=== PATIENT | male | born 1980 | race Caucasian/White ===

== ENCOUNTER 2016-11-30 06:53 | Inpatient (IN) | payer SELFPAY ==
[2016-11-30] VITALS (32 sets, daily range): BP systolic 82–132; BP diastolic 48–82
[~2016-11-30] VITALS: Ht 188 cm; Wt 91.3 kg
[2016-11-30] MEDS ORDERED: DILTIAZEM HCL 25 MG/5 ML VIAL IV ONE (07:32)
[2016-11-30] MEDS ORDERED: DEXTROSE (50%) 50ML SYRG IV PRN ×3 (07:45→20:45)
[2016-11-30] MEDS ORDERED: LEVOFLOXACIN 750MG 150 ML IV ONE (07:45)
[2016-11-30] MEDS ORDERED: SODIUM CHLORIDE 0.9% 1,000 ML IV ONE ×3 (07:45→20:45)
[2016-11-30] MEDS: SODIUM CHLORIDE 0.9% 1,000 ML IV SCH ×3 (07:56→09:39)
[2016-11-30 07:59] LABS: Urine Bilirubin Negative (Negative); Urine Blood 2+ /uL (Negative); Urine Color Light Yellow (Yellow); Urine Glucose 4+ mg/dL (Normal); Urine Ketone 3+ (Negative); Urine Nitrite Negative (Negative); Urine Urobilinogen Normal (Negative); Urine pH 5.5 (5.0-8.0)
[2016-11-30] MEDS ORDERED: InsuLIN R (HUMAN) 100 UNITS in SODIUM CHL 0.9% 99 ML IV SCH ×2 (08:00→14:40)
[2016-11-30 08:03] LABS: DEFINITIVE VIEW TRANSMISSION; Hematocrit 54.3 % (41.0-53.0); Hemoglobin 17.8 g/dL (13.5-17.5); Mean Corpuscular Hemoglobin 30.3 pg (28.0-32.0); Mean Corpuscular Hgb Conc. 32.7 g/dL (32.0-36.0); Mean Corpuscular Volume 92.8 fL (80.0-100.0); Mean Platelet Volume 8.6 fL (7.4-10.4); Platelet Count (auto) 290 10^3/uL (140-450); Red Cell Distribution Width 13.1 % (11.6-16.0); SUSPECT VIEW TRANSMISSION; White Blood Cell 21.7 10^3/uL (4.4-10.8)
[2016-11-30] MEDS ORDERED: SODIUM BICARBONATE 8.4% INJ 50ML SYRINGE ONE ×2 (08:05→20:51)
[2016-11-30 08:09] LABS: Metamyelocytes % 0; Myelocytes % 0; Promyelocytes % 0; Reactive Lymphocytes 0
[2016-11-30] MEDS ORDERED: SODIUM BICARBONATE 8.4 % INJ 50ML VIAL IV ONE (08:15)
[2016-11-30 08:19] LABS: INR 1.25 (0.9-1.15); Prothrombin Time 12.9 sec (9.37-12.3)
[2016-11-30 08:20] LABS: Lactic Acid 2.3 mmol/L (0.4-2.0)
[2016-11-30 08:24] LABS: Albumin 2.8 g/dL (3.4-5.0); Alkaline Phosphatase 277 U/L (45-117); Anion Gap 32 (5-15); Aspartate Aminotransferase 92 U/L (15-37); BUN/Creatinine Ratio 21.1; Bilirubin, Total 0.4 mg/dL (0.2-1.0); Blood Urea Nitrogen 45 mg/dL (7-18); Calcium 8.4 mg/dL (8.5-10.1); Chloride 85 mmol/L (98-107); GFR African American 45 mL/min; GFR Non-African American 37 mL/min; Potassium 4.7 mmol/L (3.5-5.1); REFLEX LACTIC ACID YES OR NO YES; Sodium 120 mmol/L (136-145); Total Protein 7.2 g/dL (6.4-8.2)
[2016-11-30 08:29] LABS: Urine Granular Cast Few /lpf (0)
[2016-11-30 08:30] LABS: Urine RBC 5 /hpf (0 - 3); Urine Squamous Epithelial Cell Few /hpf (<5)
[2016-11-30 08:33] LABS: Carbon Dioxide 3 mmol/L (21-32)
[2016-11-30 08:34] LABS: Glucose 875 mg/dL (74-106)
[2016-11-30 09:09] LABS: Platelet Estimate Adequate
[2016-11-30] MEDS ORDERED: GLI2T (09:56)
[2016-11-30] MEDS ORDERED: METF-316 (09:56)
[2016-11-30] MEDS ORDERED: INSR100KIT SC (09:56)
[2016-11-30] MEDS ORDERED: GLIP-115 (09:56)
[2016-11-30] MEDS ORDERED: ETOMIDATE (2MG/ML) 20ML VIAL IV ONE ×2 (11:42→11:45)
[2016-11-30] MEDS ORDERED: SUCCINYLCHOLINE CHLORIDE 20 MG/ML 10ML VIAL IV ONE ×2 (11:42→11:45)
[2016-11-30] MEDS ORDERED: MIDAZOLAM DRIP 100 mg/100mL NS 100 ML IV ONE (11:48)
[2016-11-30] MEDS ORDERED: ENOXAPARIN SOD 100 MG/1 ML SYRINGE SC ONE (12:00)
[2016-11-30] MEDS ORDERED: MIDAZOLAM DRIP 100 mg/100mL NS 100 ML IV SCH (12:00)
[2016-11-30] MEDS ORDERED: PANTOPRAZOLE SODIUM 40 MG/10 ML VIAL IV ONE (12:45)
[2016-11-30 14:21] LABS: BUN/Creatinine Ratio 25.7; Calcium 7.6 mg/dL (8.5-10.1); Potassium 4.1 mmol/L (3.5-5.1)
[2016-11-30] MEDS ORDERED: NOREPINEPHRINE BITARTRATE 250 ML IV SCH (14:30)
[2016-11-30] MEDS ORDERED: NITROGLYCERIN 0.4 MG SL TAB SL PRN (14:45)
[2016-11-30] MEDS ORDERED: PIPERACILLIN-TAZOB 3.375GM 100 ML IV ONE (14:45)
[2016-11-30] MEDS ORDERED: MORPHINE SULF INJ 2 MG/ML SYRINGE 1ML IV PRN (14:45)
[2016-11-30] MEDS ORDERED: OSELTAMIVIR 75 MG CAP PO ONE (14:45)
[2016-11-30] MEDS: ACCU-CHEK COMFORT CURVE STRIP VI SCH ×9 (15:15→23:00)
[2016-11-30] MEDS ORDERED: SODIUM BICARBONATE 50ML VIAL 50 ML in SOD CHL 0.45% 1,000 ML IV SCH (15:15)
[2016-11-30] MEDS: NOREPINEPHRINE BITARTRATE 250 ML IV SCH ×2 (15:19→21:10)
[2016-11-30] MEDS: MIDAZOLAM DRIP 100 mg/100mL NS 100 ML IV SCH ×2 (15:42→21:10)
[2016-11-30] MEDS: LINEZOLID 600MG/300ML 300 ML IV SCH (18:00)
[2016-11-30 18:41] LABS: BUN/Creatinine Ratio 22.9; Calcium 7.1 mg/dL (8.5-10.1); Magnesium 2.1 mg/dL (1.6-2.6); Potassium 4.3 mmol/L (3.5-5.1)
[2016-11-30] MEDS: InsuLIN R (HUMAN) 100 UNITS in SODIUM CHL 0.9% 99 ML IV SCH (20:00)
[2016-11-30] MEDS ORDERED: SODIUM CHLORIDE 0.9% 1,000 ML IV SCH (20:40)
[2016-11-30] MEDS: SODIUM BICARBONATE 50ML VIAL 150 ML in SOD CHL 0.45% 1,000 ML IV SCH (20:45)
[2016-11-30] MEDS ORDERED: fentaNYL Drip 2500mCg/250mlNS 250 ML IV ONE (20:49)
[2016-11-30] MEDS ORDERED: PROPOFOL 200 ML IV ONE (21:48)
[2016-11-30] MEDS: PIPERACILLIN-TAZOB 3.375GM 100 ML IV SCH (22:00)
[2016-11-30] MEDS: OSELTAMIVIR 75 MG CAP PO SCH (22:00)
[2016-11-30] MEDS: fentaNYL Drip 2500mCg/250mlNS 250 ML IV SCH (22:10)
[2016-12-01] VITALS (104 sets, daily range): BP systolic 79–118; BP diastolic 36–75
[2016-12-01] MEDS ORDERED: SODIUM BICARBONATE 8.4 % INJ 50ML VIAL IV ONE
[2016-12-01] MEDS ORDERED: PROPOFOL 100 ML IV SCH (00:42)
[2016-12-01] MEDS: MIDAZOLAM DRIP 100 mg/100mL NS 100 ML IV SCH ×3 (00:42→21:13)
[2016-12-01] MEDS: ACCU-CHEK COMFORT CURVE STRIP VI SCH ×24 (01:08→23:00)
[2016-12-01] MEDS: SODIUM BICARBONATE 50ML VIAL 150 ML in SOD CHL 0.45% 1,000 ML IV SCH ×2 (03:17→11:53)
[2016-12-01] MEDS: InsuLIN R (HUMAN) 100 UNITS in SODIUM CHL 0.9% 99 ML IV SCH ×2 (03:18→21:14)
[2016-12-01 03:47] LABS: Hematocrit 44.4 % (41.0-53.0); Hemoglobin 15.1 g/dL (13.5-17.5); Mean Corpuscular Hemoglobin 30.1 pg (28.0-32.0); Mean Corpuscular Hgb Conc. 34.1 g/dL (32.0-36.0); Mean Corpuscular Volume 88.5 fL (80.0-100.0); Mean Platelet Volume 7.4 fL (7.4-10.4); Platelet Count (auto) 206 10^3/uL (140-450); SUSPECT VIEW TRANSMISSION; White Blood Cell 10.3 10^3/uL (4.4-10.8)
[2016-12-01] MEDS: PROPOFOL 100 ML IV SCH (04:00)
[2016-12-01 04:03] LABS: Promyelocytes % 0; Reactive Lymphocytes 0
[2016-12-01 04:10] LABS: Potassium 3.1 mmol/L (3.5-5.1)
[2016-12-01 04:18] LABS: Albumin 1.6 g/dL (3.4-5.0); Calcium 6.7 mg/dL (8.5-10.1)
[2016-12-01 04:21] LABS: Bilirubin, Total 0.2 mg/dL (0.2-1.0); Total Protein 5.1 g/dL (6.4-8.2)
[2016-12-01] MEDS: LINEZOLID 600MG/300ML 300 ML IV SCH ×2 (04:23→17:30)
[2016-12-01 04:54] LABS: Metamyelocytes % 10; Myelocytes % 5; Platelet Estimate Adequate
[2016-12-01 04:55] LABS: RBC Morphology Normal
[2016-12-01] MEDS: PIPERACILLIN-TAZOB 3.375GM 100 ML IV SCH ×3 (06:00→22:00)
[2016-12-01] MEDS ORDERED: CALCIUM GLUC 4.65 MEQ/10ML 4.65 MEQ in SODIUM CHL 0.9% 50 ML IV ONE (06:00)
[2016-12-01] MEDS: POTASSIUM CHL 20MEQ/100ML 100 ML IV SCH ×6 (06:00→20:00)
[2016-12-01 06:11] LABS: INR 1.11 (0.9-1.15); Partial Thromboplastin Time 40.7 sec (22.64-33.71); Prothrombin Time 11.4 sec (9.37-12.3)
[2016-12-01] MEDS ORDERED: ACETAMINOPHEN 325 MG TAB PO PRN (07:15)
[2016-12-01] MEDS ORDERED: ACETAMINOPHEN 650 mg PER 20 mL UD ONE (07:48)
[2016-12-01] MEDS ORDERED: ACETAMINOPHEN 650 mg PER 20 mL UD GT PRN (09:30)
[2016-12-01] MEDS: OSELTAMIVIR 75 MG CAP PO SCH (10:15)
[2016-12-01] MEDS: PANTOPRAZOLE SODIUM 40 MG/10 ML VIAL IV SCH (10:15)
[2016-12-01] MEDS ORDERED: SODIUM CHLORIDE 0.9% 2,000 ML IV ONE (14:00)
[2016-12-01] MEDS ORDERED: POTASSIUM CHL 20MEQ/100ML 200 ML IV ONE (14:03)
[2016-12-01] MEDS: SODIUM BICARBONATE 50ML VIAL 100 ML in SOD CHL 0.45% 1,000 ML IV SCH ×2 (15:00→22:00)
[2016-12-01 20:02] LABS: Urine Bilirubin Negative (Negative); Urine Blood 2+ /uL (Negative); Urine Color Yellow (Yellow); Urine Glucose 4+ mg/dL (Normal); Urine Hyaline Cast FEW /lpf (0 - 2); Urine Ketone 1+ (Negative); Urine Mucus FEW (None Seen); Urine Nitrite Negative (Negative); Urine RBC 16 /hpf (0 - 3); Urine Squamous Epithelial Cell MOD /hpf (<5); Urine Urobilinogen Normal (Negative)
[2016-12-01] MEDS: OSELTAMIVIR 30 MG CAP PO SCH (22:00)
[2016-12-02] VITALS (99 sets, daily range): BP systolic 81–157; BP diastolic 43–90
[2016-12-02] MEDS: PROPOFOL 100 ML IV SCH (00:45)
[2016-12-02] MEDS: ACCU-CHEK COMFORT CURVE STRIP VI SCH ×9 (01:00→20:00)
[2016-12-02] MEDS: LINEZOLID 600MG/300ML 300 ML IV SCH ×2 (03:32→17:02)
[2016-12-02] MEDS: MIDAZOLAM DRIP 100 mg/100mL NS 100 ML IV SCH (03:33)
[2016-12-02 04:00] LABS: Hemoglobin 12.5 g/dL (13.5-17.5); Mean Corpuscular Hemoglobin 29.9 pg (28.0-32.0); Mean Corpuscular Hgb Conc. 33.8 g/dL (32.0-36.0); Mean Corpuscular Volume 88.2 fL (80.0-100.0); Mean Platelet Volume 7.3 fL (7.4-10.4); Platelet Count (auto) 173 10^3/uL (140-450); Red Cell Distribution Width 13.4 % (11.6-16.0); SUSPECT VIEW TRANSMISSION; White Blood Cell 5.1 10^3/uL (4.4-10.8)
[2016-12-02 04:10] LABS: Myelocytes % 0; Promyelocytes % 0; Reactive Lymphocytes 0
[2016-12-02] MEDS: fentaNYL Drip 2500mCg/250mlNS 250 ML IV SCH (04:20)
[2016-12-02 04:25] LABS: Albumin 1.3 g/dL (3.4-5.0); Bilirubin, Total 0.2 mg/dL (0.2-1.0); Calcium 6.8 mg/dL (8.5-10.1); Potassium 3.5 mmol/L (3.5-5.1); Total Protein 4.6 g/dL (6.4-8.2)
[2016-12-02 04:34] LABS: Metamyelocytes % 3; Platelet Estimate Adequate
[2016-12-02 04:35] LABS: Burr Cells FEW
[2016-12-02] MEDS: SODIUM BICARBONATE 50ML VIAL 100 ML in SOD CHL 0.45% 1,000 ML IV SCH ×2 (09:24→13:15)
[2016-12-02] MEDS: PANTOPRAZOLE SODIUM 40 MG/10 ML VIAL IV SCH (10:24)
[2016-12-02] MEDS: OSELTAMIVIR 30 MG CAP PO SCH (10:24)
[2016-12-02] MEDS ORDERED: DEXTROSE (50%) 50ML SYRG IV PRN (11:45)
[2016-12-02] MEDS ORDERED: Diabetisource AC 1 Liter GT SCH (11:45)
[2016-12-02] MEDS: PIPERACILLIN-TAZOB 2.25GM 50 ML IV SCH ×2 (11:46→18:23)
[2016-12-02] MEDS: InsuLIN REG 1unit/0.01ml Soln (100units/ml) SC SCH ×3 (12:00→20:00)
[2016-12-02] MEDS ORDERED: INSULIN DETEMIR(LEVEMIR) 1unit/0.01ml Soln (100units/ml) SC ONE (12:15)
[2016-12-02] MEDS: BACLOFEN 10 MG TAB PO ONE ×2 (12:24→16:20)
[2016-12-02] MEDS: ENOXAPARIN SOD 30 MG/0.3 ML SYRINGE SC SCH (12:24)
[2016-12-02] MEDS ORDERED: NOREPINEPHRINE BITARTRATE 32 MG in D5W 5% 218 ML IV SCH (16:00)
[2016-12-02] MEDS ORDERED: DOPamine 1600MCG/ML 250 ML IV SCH (21:00)
[2016-12-02] MEDS ORDERED: DOPamine 1600MCG/ML 250 ML IV ONE (21:07)
[2016-12-02] MEDS: INSULIN DETEMIR(LEVEMIR) 1unit/0.01ml Soln (100units/ml) SC SCH (22:05)
[2016-12-03] VITALS (100 sets, daily range): BP systolic 82–176; BP diastolic 38–81
[2016-12-03] MEDS: PROPOFOL 100 ML IV SCH (00:45)
[2016-12-03 03:35] LABS: Hematocrit 35.3 % (41.0-53.0); Mean Corpuscular Hemoglobin 30.2 pg (28.0-32.0); Mean Corpuscular Volume 88.7 fL (80.0-100.0); Mean Platelet Volume 7.4 fL (7.4-10.4); Platelet Count (auto) 174 10^3/uL (140-450); Red Cell Distribution Width 13.7 % (11.6-16.0); SUSPECT VIEW TRANSMISSION; White Blood Cell 8.9 10^3/uL (4.4-10.8)
[2016-12-03 04:00] LABS: BUN/Creatinine Ratio 10.5; Calcium 6.8 mg/dL (8.5-10.1)
[2016-12-03] MEDS: ACCU-CHEK COMFORT CURVE STRIP VI SCH ×7 (04:00→23:29)
[2016-12-03] MEDS: InsuLIN REG 1unit/0.01ml Soln (100units/ml) SC SCH ×7 (04:00→23:47)
[2016-12-03] MEDS: LINEZOLID 600MG/300ML 300 ML IV SCH ×2 (04:00→16:00)
[2016-12-03 04:23] LABS: Myelocytes % 0; Promyelocytes % 0; Reactive Lymphocytes 0
[2016-12-03 04:50] LABS: Burr Cells FEW; Metamyelocytes % 1; Platelet Estimate Adequate
[2016-12-03] MEDS: PIPERACILLIN-TAZOB 2.25GM 50 ML IV SCH ×5 (06:41→23:29)
[2016-12-03] MEDS ORDERED: SODIUM CHLORIDE 0.9% 1,000 ML IV SCH (07:15)
[2016-12-03] MEDS: INSULIN DETEMIR(LEVEMIR) 1unit/0.01ml Soln (100units/ml) SC SCH (09:08)
[2016-12-03] MEDS ORDERED: SODIUM CHLORIDE 0.9% 1,000 ML IV ONE (09:15)
[2016-12-03] MEDS ORDERED: D5W 5% 1,000 ML IV SCH (09:15)
[2016-12-03] MEDS: fentaNYL Drip 2500mCg/250mlNS 250 ML IV SCH (09:23)
[2016-12-03] MEDS: ENOXAPARIN SOD 30 MG/0.3 ML SYRINGE SC SCH (09:23)
[2016-12-03] MEDS: PANTOPRAZOLE SODIUM 40 MG/10 ML VIAL IV SCH (09:23)
[2016-12-03] MEDS: SODIUM BICARBONATE 50ML VIAL 100 ML in SOD CHL 0.45% 1,000 ML IV SCH ×2 (09:28→13:44)
[2016-12-03] MEDS ORDERED: DEXTROSE 10% 1,000 ML IV ONE (09:30)
[2016-12-03] MEDS ORDERED: BUMETANIDE (0.25 MG/ML) INJ 10ML IV ONE (09:30)
[2016-12-03] MEDS ORDERED: POTASSIUM CHLORIDE 40 MEQ, LIDOCAINE 1% (LOCAL ANESTH.) 4 ML in SODIUM CHL 0.9% 250 ML IV ONE (09:30)
[2016-12-03] MEDS ORDERED: OSELTAMIVIR 30 MG CAP PO SCH (10:00)
[2016-12-03] MEDS ORDERED: Diabetisource AC 1 Liter GT SCH (17:00)
[2016-12-03 18:58] LABS: BUN/Creatinine Ratio 9.7; Calcium 6.7 mg/dL (8.5-10.1); Potassium 3.1 mmol/L (3.5-5.1)
[2016-12-03] MEDS ORDERED: POTASSIUM CHL 20MEQ/100ML 100 ML IV ONE ×2 (23:04→23:15)
[2016-12-04] VITALS (104 sets, daily range): BP systolic 79–138; BP diastolic 35–87
[2016-12-04] MEDS: PROPOFOL 100 ML IV SCH (00:45)
[2016-12-04] MEDS: LINEZOLID 600MG/300ML 300 ML IV SCH ×2 (03:30→16:59)
[2016-12-04] MEDS: ACCU-CHEK COMFORT CURVE STRIP VI SCH ×6 (03:30→23:28)
[2016-12-04] MEDS: InsuLIN REG 1unit/0.01ml Soln (100units/ml) SC SCH ×6 (03:34→23:29)
[2016-12-04 04:21] LABS: Basophils # (auto) 0 uL; Basophils % (auto) 0.1 % (0.0-2.0); Eosinophils # (auto) 0.1 uL; Eosinophils % (auto) 0.8 % (0.0-7.0); Hematocrit 31.6 % (41.0-53.0); Hemoglobin 11.1 g/dL (13.5-17.5); Lymphocytes # (auto) 0.5 uL; Lymphocytes % (auto) 5.4 % (10.0-50.0); Mean Corpuscular Hemoglobin 30.4 pg (28.0-32.0); Mean Corpuscular Volume 86.8 fL (80.0-100.0); Mean Platelet Volume 7.3 fL (7.4-10.4); Monocytes # (auto) 0.4 uL; Monocytes % (auto) 3.9 % (0.0-12.0); Neutrophils # (auto) 8.9 uL; Neutrophils % (auto) 89.8 % (37.0-80.0); Platelet Count (auto) 177 10^3/uL (140-450); Red Cell Distribution Width 13.9 % (11.6-16.0); White Blood Cell 9.9 10^3/uL (4.4-10.8)
[2016-12-04 04:36] LABS: BUN/Creatinine Ratio 10.7; Calcium 6.7 mg/dL (8.5-10.1); Potassium 3.4 mmol/L (3.5-5.1)
[2016-12-04] MEDS: PIPERACILLIN-TAZOB 2.25GM 50 ML IV SCH ×4 (05:35→23:28)
[2016-12-04] MEDS: fentaNYL Drip 2500mCg/250mlNS 250 ML IV SCH ×2 (07:39→19:14)
[2016-12-04] MEDS ORDERED: SODIUM CHL 0.9% 1000 ML BAG XX ONE (11:15)
[2016-12-04] MEDS: ENOXAPARIN SOD 30 MG/0.3 ML SYRINGE SC SCH (12:41)
[2016-12-04] MEDS: PANTOPRAZOLE SODIUM 40 MG/10 ML VIAL IV SCH (12:41)
[2016-12-04] MEDS ORDERED: NOREPINEPHRINE BITARTRATE 250 ML IV ONE (13:12)
[2016-12-04] MEDS: MIDAZOLAM DRIP 100 mg/100mL NS 100 ML IV SCH ×2 (19:13)
[2016-12-05] VITALS (104 sets, daily range): BP systolic 92–137; BP diastolic 45–80
[2016-12-05] MEDS: PROPOFOL 100 ML IV SCH (00:45)
[2016-12-05] MEDS: LINEZOLID 600MG/300ML 300 ML IV SCH ×2 (03:27→16:00)
[2016-12-05] MEDS: MIDAZOLAM DRIP 100 mg/100mL NS 100 ML IV SCH (03:27)
[2016-12-05] MEDS: ACCU-CHEK COMFORT CURVE STRIP VI SCH ×5 (03:28→20:50)
[2016-12-05] MEDS: InsuLIN REG 1unit/0.01ml Soln (100units/ml) SC SCH ×5 (03:34→21:04)
[2016-12-05 04:12] LABS: Basophils # (auto) 0 uL; Basophils % (auto) 0.1 % (0.0-2.0); Eosinophils # (auto) 0.1 uL; Hematocrit 28.6 % (41.0-53.0); Hemoglobin 9.9 g/dL (13.5-17.5); Lymphocytes # (auto) 0.6 uL; Lymphocytes % (auto) 8.6 % (10.0-50.0); Mean Corpuscular Hemoglobin 30.1 pg (28.0-32.0); Mean Corpuscular Hgb Conc. 34.5 g/dL (32.0-36.0); Mean Corpuscular Volume 87.3 fL (80.0-100.0); Mean Platelet Volume 7.2 fL (7.4-10.4); Monocytes # (auto) 0.5 uL; Monocytes % (auto) 7.9 % (0.0-12.0); Neutrophils # (auto) 5.2 uL; Neutrophils % (auto) 81.4 % (37.0-80.0); Platelet Count (auto) 163 10^3/uL (140-450); Red Cell Distribution Width 14.2 % (11.6-16.0); White Blood Cell 6.4 10^3/uL (4.4-10.8)
[2016-12-05 04:27] LABS: BUN/Creatinine Ratio 9.8; Bilirubin, Total 0.3 mg/dL (0.2-1.0); Calcium 7.1 mg/dL (8.5-10.1); Magnesium 2.2 mg/dL (1.6-2.6); Prothrombin Time 11.9 sec (9.37-12.3); Total Protein 4.9 g/dL (6.4-8.2)
[2016-12-05 04:40] LABS: INR 1.16 (0.9-1.15)
[2016-12-05 04:46] LABS: Potassium 2.9 mmol/L (3.5-5.1)
[2016-12-05] MEDS ORDERED: POTASSIUM CHL 20MEQ/100ML 200 ML IV ONE (06:16)
[2016-12-05] MEDS: PIPERACILLIN-TAZOB 2.25GM 50 ML IV SCH ×3 (06:25→18:32)
[2016-12-05] MEDS: POTASSIUM CHL 20MEQ/100ML 100 ML IV SCH ×2 (06:30→09:11)
[2016-12-05] MEDS: fentaNYL Drip 2500mCg/250mlNS 250 ML IV SCH (08:23)
[2016-12-05] MEDS: ENOXAPARIN SOD 30 MG/0.3 ML SYRINGE SC SCH (10:31)
[2016-12-05] MEDS: PANTOPRAZOLE SODIUM 40 MG/10 ML VIAL IV SCH (10:31)
[2016-12-06] VITALS (97 sets, daily range): BP systolic 94–175; BP diastolic 44–119
[2016-12-06] MEDS: PIPERACILLIN-TAZOB 2.25GM 50 ML IV SCH ×3 (00:45→12:00)
[2016-12-06] MEDS: InsuLIN REG 1unit/0.01ml Soln (100units/ml) SC SCH ×6 (03:14→21:06)
[2016-12-06] MEDS: ACCU-CHEK COMFORT CURVE STRIP VI SCH ×6 (03:40→20:45)
[2016-12-06] MEDS: LINEZOLID 600MG/300ML 300 ML IV SCH ×2 (03:40→16:00)
[2016-12-06 03:54] LABS: Basophils # (auto) 0 uL; Eosinophils # (auto) 0.1 uL; Hemoglobin 10.3 g/dL (13.5-17.5); Lymphocytes # (auto) 0.5 uL; Lymphocytes % (auto) 6.3 % (10.0-50.0); Mean Corpuscular Hemoglobin 30.3 pg (28.0-32.0); Mean Corpuscular Hgb Conc. 34.2 g/dL (32.0-36.0); Mean Corpuscular Volume 88.5 fL (80.0-100.0); Monocytes # (auto) 0.9 uL; Monocytes % (auto) 11.8 % (0.0-12.0); Neutrophils # (auto) 6.4 uL; Neutrophils % (auto) 80.9 % (37.0-80.0); Platelet Count (auto) 214 10^3/uL (140-450); Red Cell Distribution Width 14.1 % (11.6-16.0); White Blood Cell 7.9 10^3/uL (4.4-10.8)
[2016-12-06 04:11] LABS: Albumin 1.2 g/dL (3.4-5.0); Calcium 7.4 mg/dL (8.5-10.1); Magnesium 2.4 mg/dL (1.6-2.6); Potassium 3.1 mmol/L (3.5-5.1)
[2016-12-06 04:12] LABS: INR 1.11 (0.9-1.15); Prothrombin Time 11.4 sec (9.37-12.3)
[2016-12-06 04:23] LABS: BUN/Creatinine Ratio 9.6; Bilirubin, Total 0.4 mg/dL (0.2-1.0); Total Protein 5.3 g/dL (6.4-8.2)
[2016-12-06] MEDS ORDERED: PROPOFOL 100 ML IV ONE (07:52)
[2016-12-06] MEDS ORDERED: SODIUM BICARBONATE 8.4% INJ 50ML SYRINGE ONE (07:52)
[2016-12-06] MEDS ORDERED: SODIUM BICARBONATE 8.4 % INJ 50ML VIAL IV ONE (08:00)
[2016-12-06] MEDS: PROPOFOL 100 ML IV SCH ×2 (08:13→10:17)
[2016-12-06] MEDS ORDERED: EPOETIN ALFA 3,000 UNIT/1 ML VIAL IV ONE ×2 (10:15→11:15)
[2016-12-06] MEDS ORDERED: SODIUM CHL 0.9% 1000 ML BAG XX ONE ×2 (10:15→10:30)
[2016-12-06] MEDS: PANTOPRAZOLE SODIUM 40 MG/10 ML VIAL IV SCH (10:16)
[2016-12-06] MEDS: ENOXAPARIN SOD 30 MG/0.3 ML SYRINGE SC SCH (10:16)
[2016-12-06] MEDS ORDERED: EPOETIN ALFA 2,000 UNIT/1 ML VIAL IV ONE (11:15)
[2016-12-06] MEDS: METOCLOPRAMIDE HCL 5MG/ml INJ 2ml VIAL IV SCH ×2 (13:54→22:00)
[2016-12-06] MEDS: fentaNYL Drip 2500mCg/250mlNS 250 ML IV SCH (18:30)
[2016-12-06] MEDS: INSULIN DETEMIR(LEVEMIR) 1unit/0.01ml Soln (100units/ml) SC SCH (22:00)
[2016-12-06 22:08] LABS: Subtype Novel H1N1 by PCR Negative (Negative)
[2016-12-07] VITALS (96 sets, daily range): BP systolic 105–162; BP diastolic 46–106
[2016-12-07] MEDS: fentaNYL Drip 2500mCg/250mlNS 250 ML IV SCH (00:42)
[2016-12-07] MEDS: ACCU-CHEK COMFORT CURVE STRIP VI SCH ×6 (03:45→21:10)
[2016-12-07] MEDS: LINEZOLID 600MG/300ML 300 ML IV SCH ×2 (03:47→16:26)
[2016-12-07] MEDS: InsuLIN REG 1unit/0.01ml Soln (100units/ml) SC SCH ×6 (03:47→22:14)
[2016-12-07 04:00] LABS: Basophils # (auto) 0 uL; Basophils % (auto) 0.1 % (0.0-2.0); Eosinophils # (auto) 0.1 uL; Eosinophils % (auto) 1.5 % (0.0-7.0); Hematocrit 29.9 % (41.0-53.0); Hemoglobin 10.3 g/dL (13.5-17.5); Lymphocytes # (auto) 0.6 uL; Mean Corpuscular Hemoglobin 30.1 pg (28.0-32.0); Mean Corpuscular Hgb Conc. 34.5 g/dL (32.0-36.0); Mean Corpuscular Volume 87.3 fL (80.0-100.0); Mean Platelet Volume 6.7 fL (7.4-10.4); Monocytes # (auto) 1.2 uL; Monocytes % (auto) 14.3 % (0.0-12.0); Neutrophils # (auto) 6.3 uL; Neutrophils % (auto) 77.1 % (37.0-80.0); Platelet Count (auto) 257 10^3/uL (140-450); White Blood Cell 8.1 10^3/uL (4.4-10.8)
[2016-12-07 04:44] LABS: BUN/Creatinine Ratio 9.1; Calcium 7.4 mg/dL (8.5-10.1)
[2016-12-07 04:47] LABS: Potassium 2.7 mmol/L (3.5-5.1)
[2016-12-07] MEDS: cefTRIAXone 1GM/50ML D5W 50 ML IV SCH (08:55)
[2016-12-07] MEDS: POTASSIUM CHL 20MEQ/100ML 100 ML IV SCH ×4 (08:55→14:45)
[2016-12-07] MEDS: FLUCONAZOLE 200MG/100ML 100 ML IV SCH (11:03)
[2016-12-07] MEDS: PANTOPRAZOLE SODIUM 40 MG/10 ML VIAL IV SCH (11:07)
[2016-12-07] MEDS: ENOXAPARIN SOD 30 MG/0.3 ML SYRINGE SC SCH (11:07)
[2016-12-07] MEDS: INSULIN DETEMIR(LEVEMIR) 1unit/0.01ml Soln (100units/ml) SC SCH ×2 (11:13→21:08)
[2016-12-07] MEDS: METOCLOPRAMIDE HCL 5MG/ml INJ 2ml VIAL IV SCH ×2 (16:33→22:22)
[2016-12-07] MEDS: PROPOFOL 100 ML IV SCH (18:24)
[2016-12-08] VITALS (96 sets, daily range): BP systolic 109–141; BP diastolic 48–89
[2016-12-08] MEDS: InsuLIN REG 1unit/0.01ml Soln (100units/ml) SC SCH ×6 (00:40→20:00)
[2016-12-08] MEDS: ACCU-CHEK COMFORT CURVE STRIP VI SCH ×6 (00:40→20:00)
[2016-12-08] MEDS: fentaNYL Drip 2500mCg/250mlNS 250 ML IV SCH (00:42)
[2016-12-08] MEDS: LINEZOLID 600MG/300ML 300 ML IV SCH (04:28)
[2016-12-08 04:39] LABS: Basophils # (auto) 0 uL; Basophils % (auto) 0.5 % (0.0-2.0); Eosinophils # (auto) 0.1 uL; Eosinophils % (auto) 1.9 % (0.0-7.0); Hematocrit 27.4 % (41.0-53.0); Hemoglobin 9.7 g/dL (13.5-17.5); Lymphocytes # (auto) 0.8 uL; Mean Corpuscular Hemoglobin 30.5 pg (28.0-32.0); Mean Corpuscular Hgb Conc. 35.2 g/dL (32.0-36.0); Mean Corpuscular Volume 86.4 fL (80.0-100.0); Mean Platelet Volume 6.5 fL (7.4-10.4); Monocytes # (auto) 0.9 uL; Monocytes % (auto) 12.4 % (0.0-12.0); Neutrophils # (auto) 5.6 uL; Neutrophils % (auto) 74.2 % (37.0-80.0); Platelet Count (auto) 276 10^3/uL (140-450); Red Cell Distribution Width 13.3 % (11.6-16.0); White Blood Cell 7.5 10^3/uL (4.4-10.8)
[2016-12-08 05:03] LABS: Albumin 1.3 g/dL (3.4-5.0); BUN/Creatinine Ratio 8.8; Bilirubin, Total 0.3 mg/dL (0.2-1.0); Calcium 7.8 mg/dL (8.5-10.1); Total Protein 5.6 g/dL (6.4-8.2)
[2016-12-08 05:17] LABS: Potassium 2.6 mmol/L (3.5-5.1)
[2016-12-08] MEDS ORDERED: SODIUM CHL 0.9% 1000 ML BAG XX ONE ×2 (06:00→09:30)
[2016-12-08] MEDS: METOCLOPRAMIDE HCL 5MG/ml INJ 2ml VIAL IV SCH ×3 (06:00→22:27)
[2016-12-08] MEDS ORDERED: EPOETIN ALFA 10,000 UNIT/1 ML VIAL IV ONE ×2 (06:00→09:30)
[2016-12-08] MEDS ORDERED: POTASSIUM CHL 20MEQ/100ML 100 ML IV ONE ×2 (06:52→09:30)
[2016-12-08] MEDS: POTASSIUM CHL 20MEQ/100ML 100 ML IV SCH ×2 (07:00→09:00)
[2016-12-08] MEDS: cefTRIAXone 1GM/50ML D5W 50 ML IV SCH (09:00)
[2016-12-08] MEDS: INSULIN DETEMIR(LEVEMIR) 1unit/0.01ml Soln (100units/ml) SC SCH ×2 (10:00→22:00)
[2016-12-08] MEDS: FLUCONAZOLE 200MG/100ML 100 ML IV SCH (10:00)
[2016-12-08] MEDS: ENOXAPARIN SOD 30 MG/0.3 ML SYRINGE SC SCH (10:00)
[2016-12-08] MEDS: PANTOPRAZOLE SODIUM 40 MG/10 ML VIAL IV SCH (10:00)
[2016-12-08] MEDS ORDERED: LIDOCAINE 1% HCL (LOCAL ANESTH.) INJ 20ML MDV ONE (11:44)
[2016-12-08] MEDS ORDERED: CATHFLO ACTIVASE (ALTEPLASE) 2 MG VIAL IV ONE (11:45)
[2016-12-08] MEDS ORDERED: MORPHINE SULF INJ 2 MG/ML SYRINGE 1ML IV PRN (11:45)
[2016-12-08] MEDS: PROPOFOL 100 ML IV SCH (20:15)
[2016-12-09] VITALS (82 sets, daily range): BP systolic 96–158; BP diastolic 44–100
[2016-12-09] MEDS: fentaNYL Drip 2500mCg/250mlNS 250 ML IV SCH (00:42)
[2016-12-09] MEDS: InsuLIN REG 1unit/0.01ml Soln (100units/ml) SC SCH ×6 (04:00→20:00)
[2016-12-09] MEDS: ACCU-CHEK COMFORT CURVE STRIP VI SCH ×6 (04:00→20:00)
[2016-12-09 04:12] LABS: BUN/Creatinine Ratio 7.7; Calcium 7.1 mg/dL (8.5-10.1); Potassium 3.2 mmol/L (3.5-5.1)
[2016-12-09] MEDS: PROPOFOL 100 ML IV SCH (04:29)
[2016-12-09] MEDS: METOCLOPRAMIDE HCL 5MG/ml INJ 2ml VIAL IV SCH (06:19)
[2016-12-09] MEDS: cefTRIAXone 1GM/50ML D5W 50 ML IV SCH (08:54)
[2016-12-09] MEDS: INSULIN DETEMIR(LEVEMIR) 1unit/0.01ml Soln (100units/ml) SC SCH ×2 (10:00→22:00)
[2016-12-09] MEDS: ENOXAPARIN SOD 30 MG/0.3 ML SYRINGE SC SCH (10:16)
[2016-12-09] MEDS: PANTOPRAZOLE SODIUM 40 MG/10 ML VIAL IV SCH (10:16)
[2016-12-09] MEDS: FLUCONAZOLE 200MG/100ML 100 ML IV SCH (10:17)
[2016-12-09] MEDS ORDERED: BUMETANIDE (0.25MG/ML) 4 ML VIAL ONE (11:08)
[2016-12-09] MEDS ORDERED: POTASSIUM CHL 10% (20 MEQ/15ML) ORAL SOLN GT ONE (11:30)
[2016-12-09] MEDS ORDERED: BUMETANIDE (0.25MG/ML) 4 ML VIAL IV ONE (11:30)
[2016-12-09] MEDS ORDERED: POTASSIUM CHL 20MEQ/100ML 100 ML IV ONE ×2 (12:30→14:45)
[2016-12-09] MEDS ORDERED: EPOETIN ALFA 10,000 UNIT/1 ML VIAL IV ONE (14:30)
[2016-12-09] MEDS ORDERED: SODIUM CHL 0.9% 1000 ML BAG XX ONE (14:30)
[2016-12-09] MEDS ORDERED: ACETAMINOPHEN 325 MG TAB PO ONE (17:57)
[2016-12-09] MEDS: B-COMPLEX W/ C & FOLIC ACID(NEPHROVITE TAB) PO SCH (18:04)
[2016-12-09] MEDS: ACETAMINOPHEN 325 MG TAB PO PRN (18:14)
[2016-12-10] VITALS (38 sets, daily range): BP systolic 117–140; BP diastolic 60–83
[2016-12-10] MEDS: ACCU-CHEK COMFORT CURVE STRIP VI SCH ×6 (00:10→22:14)
[2016-12-10] MEDS: InsuLIN REG 1unit/0.01ml Soln (100units/ml) SC SCH ×6 (00:10→22:16)
[2016-12-10 06:30] LABS: Basophils # (auto) 0 uL; Basophils % (auto) 0.2 % (0.0-2.0); Eosinophils # (auto) 0 uL; Eosinophils % (auto) 0.3 % (0.0-7.0); Hematocrit 29.2 % (41.0-53.0); Lymphocytes # (auto) 0.7 uL; Lymphocytes % (auto) 5.7 % (10.0-50.0); Mean Corpuscular Hemoglobin 29.9 pg (28.0-32.0); Mean Corpuscular Hgb Conc. 34.1 g/dL (32.0-36.0); Mean Corpuscular Volume 87.7 fL (80.0-100.0); Mean Platelet Volume 6.6 fL (7.4-10.4); Monocytes # (auto) 0.9 uL; Monocytes % (auto) 6.9 % (0.0-12.0); Neutrophils # (auto) 10.8 uL; Neutrophils % (auto) 86.9 % (37.0-80.0); Platelet Count (auto) 398 10^3/uL (140-450); White Blood Cell 12.4 10^3/uL (4.4-10.8)
[2016-12-10 06:55] LABS: Potassium 3.5 mmol/L (3.5-5.1)
[2016-12-10 07:15] LABS: Albumin 1.4 g/dL (3.4-5.0); BUN/Creatinine Ratio 6.6; Bilirubin, Total 0.4 mg/dL (0.2-1.0); Calcium 7.6 mg/dL (8.5-10.1); Total Protein 5.9 g/dL (6.4-8.2)
[2016-12-10] MEDS: cefTRIAXone 1GM/50ML D5W 50 ML IV SCH (08:33)
[2016-12-10] MEDS: B-COMPLEX W/ C & FOLIC ACID(NEPHROVITE TAB) PO SCH (10:17)
[2016-12-10] MEDS: ENOXAPARIN SOD 30 MG/0.3 ML SYRINGE SC SCH (10:18)
[2016-12-10] MEDS: PANTOPRAZOLE SODIUM 40 MG/10 ML VIAL IV SCH (10:18)
[2016-12-10] MEDS: INSULIN DETEMIR(LEVEMIR) 1unit/0.01ml Soln (100units/ml) SC SCH ×2 (10:20→22:16)
[2016-12-10] MEDS: FLUCONAZOLE 200MG/100ML 100 ML IV SCH (10:21)
[2016-12-10] MEDS ORDERED: DEXTROSE (50%) 50ML SYRG IV PRN (11:45)
[2016-12-10 12:07] LABS: Phosphorus 4.2 mg/dL (2.5-4.90)
[2016-12-10] MEDS ORDERED: LIDOCAINE 1% HCL (LOCAL ANESTH.) INJ 20ML MDV ONE (12:43)
[2016-12-11 05:54] VITALS: BP 140/70
[2016-12-11 06:21] LABS: Basophils # (auto) 0 uL; Basophils % (auto) 0.1 % (0.0-2.0); Eosinophils # (auto) 0.1 uL; Eosinophils % (auto) 0.6 % (0.0-7.0); Hematocrit 25.4 % (41.0-53.0); Hemoglobin 8.7 g/dL (13.5-17.5); Lymphocytes # (auto) 0.8 uL; Lymphocytes % (auto) 7.2 % (10.0-50.0); Mean Corpuscular Hemoglobin 29.7 pg (28.0-32.0); Mean Corpuscular Hgb Conc. 34.4 g/dL (32.0-36.0); Mean Corpuscular Volume 86.5 fL (80.0-100.0); Monocytes # (auto) 0.7 uL; Monocytes % (auto) 5.8 % (0.0-12.0); Neutrophils # (auto) 9.7 uL; Neutrophils % (auto) 86.3 % (37.0-80.0); Platelet Count (auto) 405 10^3/uL (140-450); Red Cell Distribution Width 13.4 % (11.6-16.0); White Blood Cell 11.2 10^3/uL (4.4-10.8)
[2016-12-11] MEDS: ACCU-CHEK COMFORT CURVE STRIP VI SCH ×4 (06:56→22:00)
[2016-12-11] MEDS: InsuLIN REG 1unit/0.01ml Soln (100units/ml) SC SCH ×4 (06:56→22:48)
[2016-12-11 09:13] VITALS: BP 140/77
[2016-12-11] MEDS: FLUCONAZOLE 200MG/100ML 100 ML IV SCH (12:19)
[2016-12-11] MEDS: PANTOPRAZOLE SODIUM 40 MG/10 ML VIAL IV SCH (12:19)
[2016-12-11] MEDS: B-COMPLEX W/ C & FOLIC ACID(NEPHROVITE TAB) PO SCH (12:19)
[2016-12-11] MEDS: INSULIN DETEMIR(LEVEMIR) 1unit/0.01ml Soln (100units/ml) SC SCH ×2 (12:20→22:49)
[2016-12-11 13:44] VITALS: BP 132/82
[2016-12-11 16:28] VITALS: BP 145/80
[2016-12-11] MEDS: cefTRIAXone 1GM/50ML D5W 50 ML IV SCH (17:00)
[2016-12-11] MEDS: ENOXAPARIN SOD 30 MG/0.3 ML SYRINGE SC SCH (17:00)
[2016-12-11] MEDS ORDERED: ACETYLCYSTEINE 10 %(100MG/ML) SOL 4ML NEB SCH (18:00)
[2016-12-11 21:10] VITALS: BP 145/80
[2016-12-11 22:00] VITALS: BP 145/81
[2016-12-11] MEDS: ACETYLCYSTEINE 10 %(100MG/ML) SOL 4ML NEB SCH (22:17)
[2016-12-11] MEDS: ALBUTEROL SULF 2.5 MG/0.5ML(0.5%) NEB SOLN NEB PRN (22:18)
[2016-12-12 05:00] VITALS: BP 136/80
[2016-12-12] MEDS: ALBUTEROL SULF 2.5 MG/0.5ML(0.5%) NEB SOLN NEB PRN (06:18)
[2016-12-12] MEDS: ACETYLCYSTEINE 10 %(100MG/ML) SOL 4ML NEB SCH ×2 (06:18→14:10)
[2016-12-12 06:38] LABS: Basophils # (auto) 0 uL; Basophils % (auto) 0.6 % (0.0-2.0); Eosinophils # (auto) 0 uL; Eosinophils % (auto) 0.5 % (0.0-7.0); Hematocrit 26.5 % (41.0-53.0); Lymphocytes # (auto) 0.9 uL; Lymphocytes % (auto) 11.7 % (10.0-50.0); Mean Corpuscular Volume 88.3 fL (80.0-100.0); Mean Platelet Volume 6.2 fL (7.4-10.4); Monocytes # (auto) 0.6 uL; Monocytes % (auto) 7.3 % (0.0-12.0); Neutrophils # (auto) 6.3 uL; Neutrophils % (auto) 79.9 % (37.0-80.0); Platelet Count (auto) 361 10^3/uL (140-450); Red Cell Distribution Width 13.4 % (11.6-16.0); White Blood Cell 7.9 10^3/uL (4.4-10.8)
[2016-12-12] MEDS: ACCU-CHEK COMFORT CURVE STRIP VI SCH ×4 (06:49→22:00)
[2016-12-12] MEDS: InsuLIN REG 1unit/0.01ml Soln (100units/ml) SC SCH ×4 (06:49→22:43)
[2016-12-12 07:16] LABS: BUN/Creatinine Ratio 5.9; Calcium 7.4 mg/dL (8.5-10.1)
[2016-12-12 09:00] VITALS: BP 130/77
[2016-12-12] MEDS: cefTRIAXone 1GM/50ML D5W 50 ML IV SCH (09:26)
[2016-12-12] MEDS: FLUCONAZOLE 200MG/100ML 100 ML IV SCH (10:33)
[2016-12-12] MEDS: B-COMPLEX W/ C & FOLIC ACID(NEPHROVITE TAB) PO SCH (10:33)
[2016-12-12] MEDS: PANTOPRAZOLE SODIUM 40 MG/10 ML VIAL IV SCH (10:33)
[2016-12-12] MEDS: ENOXAPARIN SOD 30 MG/0.3 ML SYRINGE SC SCH (10:33)
[2016-12-12] MEDS: INSULIN DETEMIR(LEVEMIR) 1unit/0.01ml Soln (100units/ml) SC SCH ×2 (10:49→22:47)
[2016-12-12 13:00] VITALS: BP 117/69
[2016-12-12 17:00] VITALS: BP 121/77
[2016-12-12 22:17] VITALS: BP 141/78
[2016-12-13] VITALS (7 sets, daily range): BP systolic 126–146; BP diastolic 76–91
[2016-12-13] MEDS: ACETYLCYSTEINE 10 %(100MG/ML) SOL 4ML NEB SCH ×4 (02:11→21:49)
[2016-12-13] MEDS: ALBUTEROL SULF 2.5 MG/0.5ML(0.5%) NEB SOLN NEB PRN ×2 (02:12→21:49)
[2016-12-13 06:30] LABS: Basophils # (auto) 0.1 uL; Basophils % (auto) 0.7 % (0.0-2.0); Eosinophils # (auto) 0 uL; Eosinophils % (auto) 0.3 % (0.0-7.0); Hematocrit 24.9 % (41.0-53.0); Hemoglobin 8.6 g/dL (13.5-17.5); Lymphocytes # (auto) 0.9 uL; Lymphocytes % (auto) 11.3 % (10.0-50.0); Mean Corpuscular Hemoglobin 29.8 pg (28.0-32.0); Mean Corpuscular Hgb Conc. 34.7 g/dL (32.0-36.0); Mean Corpuscular Volume 86.1 fL (80.0-100.0); Monocytes # (auto) 0.4 uL; Monocytes % (auto) 5.4 % (0.0-12.0); Neutrophils # (auto) 6.5 uL; Neutrophils % (auto) 82.3 % (37.0-80.0); Platelet Count (auto) 351 10^3/uL (140-450); Red Cell Distribution Width 13.6 % (11.6-16.0); White Blood Cell 7.9 10^3/uL (4.4-10.8)
[2016-12-13] MEDS: InsuLIN REG 1unit/0.01ml Soln (100units/ml) SC SCH ×4 (06:54→22:00)
[2016-12-13] MEDS: ACCU-CHEK COMFORT CURVE STRIP VI SCH ×4 (06:54→22:00)
[2016-12-13 07:09] LABS: BUN/Creatinine Ratio 6.2; Calcium 7.5 mg/dL (8.5-10.1)
[2016-12-13] MEDS ORDERED: SODIUM CHL 0.9% 1000 ML BAG XX ONE (08:00)
[2016-12-13] MEDS ORDERED: EPOETIN ALFA 10,000 UNIT/1 ML VIAL IV ONE (08:00)
[2016-12-13] MEDS: ENOXAPARIN SOD 30 MG/0.3 ML SYRINGE SC SCH (10:19)
[2016-12-13] MEDS: B-COMPLEX W/ C & FOLIC ACID(NEPHROVITE TAB) PO SCH (10:19)
[2016-12-13] MEDS: INSULIN DETEMIR(LEVEMIR) 1unit/0.01ml Soln (100units/ml) SC SCH ×2 (10:29→22:48)
[2016-12-13] MEDS ORDERED: PANTOPRAZOLE 40 MG TAB PO ONE (12:15)
[2016-12-13] MEDS ORDERED: INSULIN DETEMIR(LEVEMIR) 1unit/0.01ml Soln (100units/ml) SC ONE (12:15)
[2016-12-13] MEDS: cefTRIAXone 1GM/50ML D5W 50 ML IV SCH (12:35)
[2016-12-13] MEDS: FLUCONAZOLE 200MG/100ML 100 ML IV SCH (14:00)
[2016-12-13 14:10] LABS: Vitamin D 25-Hydroxy 13 ng/mL (.); Vitamin D-2 25-Hydroxy <1.0 ng/mL (.)
[2016-12-13] MEDS: PRO-STAT 64 30ML PO SCH (18:00)
[2016-12-13] MEDS: ACETAMINOPHEN 325 MG TAB PO PRN (20:34)
[2016-12-14 05:00] VITALS: BP 131/75
[2016-12-14 05:50] LABS: Urine Bilirubin Negative (Negative); Urine Color Yellow (Yellow); Urine Glucose Normal (Normal); Urine Ketone Negative (Negative); Urine Mucus FEW (None Seen); Urine Nitrite Negative (Negative); Urine RBC 8 /hpf (0 - 3); Urine Urobilinogen Normal (Negative); Urine pH 6.5 (5.0-8.0)
[2016-12-14 05:51] LABS: Urine Blood 1+ /uL (Negative)
[2016-12-14] MEDS: ACETYLCYSTEINE 10 %(100MG/ML) SOL 4ML NEB SCH (06:00)
[2016-12-14 06:06] LABS: Potassium 3.1 mmol/L (3.5-5.1)
[2016-12-14 06:12] LABS: BUN/Creatinine Ratio 6.2; Calcium 7.3 mg/dL (8.5-10.1)
[2016-12-14] MEDS: ACCU-CHEK COMFORT CURVE STRIP VI SCH ×4 (06:45→22:21)
[2016-12-14] MEDS: InsuLIN REG 1unit/0.01ml Soln (100units/ml) SC SCH ×4 (06:45→22:20)
[2016-12-14] MEDS: cefTRIAXone 1GM/50ML D5W 50 ML IV SCH (08:55)
[2016-12-14 09:00] VITALS: BP 145/83
[2016-12-14] MEDS: B-COMPLEX W/ C & FOLIC ACID(NEPHROVITE TAB) PO SCH (10:11)
[2016-12-14] MEDS: FLUCONAZOLE 200MG/100ML 100 ML IV SCH (10:11)
[2016-12-14] MEDS: PANTOPRAZOLE 40 MG TAB PO SCH (10:12)
[2016-12-14] MEDS: PRO-STAT 64 30ML PO SCH ×2 (10:13→18:00)
[2016-12-14] MEDS: INSULIN DETEMIR(LEVEMIR) 1unit/0.01ml Soln (100units/ml) SC SCH ×2 (10:45→22:21)
[2016-12-14] MEDS ORDERED: POTASSIUM CHL 20 Meq TABLET PO ONE (11:45)
[2016-12-14 12:54] VITALS: BP 136/74
[2016-12-14] MEDS ORDERED: SODIUM CHLORIDE 0.9% 1,000 ML IV ONE (15:30)
[2016-12-14 16:41] VITALS: BP 130/82
[2016-12-14 22:00] VITALS: BP 145/83
[2016-12-15 05:00] VITALS: BP 151/76
[2016-12-15] MEDS: InsuLIN REG 1unit/0.01ml Soln (100units/ml) SC SCH ×2 (06:11→11:30)
[2016-12-15] MEDS: ACCU-CHEK COMFORT CURVE STRIP VI SCH ×2 (06:12→11:30)
[2016-12-15 06:36] LABS: BUN/Creatinine Ratio 8.2; Calcium 7.7 mg/dL (8.5-10.1)
[2016-12-15 09:00] VITALS: BP 122/77
[2016-12-15] MEDS: cefTRIAXone 1GM/50ML D5W 50 ML IV SCH (09:08)
[2016-12-15] MEDS: PRO-STAT 64 30ML PO SCH (09:08)
[2016-12-15] MEDS: PANTOPRAZOLE 40 MG TAB PO SCH (09:09)
[2016-12-15] MEDS: B-COMPLEX W/ C & FOLIC ACID(NEPHROVITE TAB) PO SCH (09:09)
[2016-12-15] MEDS ORDERED: FLUCONAZOLE 100 MG TAB PO SCH (10:00)
[2016-12-15] MEDS: INSULIN DETEMIR(LEVEMIR) 1unit/0.01ml Soln (100units/ml) SC SCH (10:00)
[2016-12-15 13:00] VITALS: BP 145/89
[2016-12-15] MEDS ORDERED: POTASSIUM CHL 20 Meq TABLET PO ONE (14:15)
[2016-12-15 14:24] VITALS: BP 145/89
== END 2016-12-15 14:58 | disposition home or self-care (01) | DRG 870 ==
LOC: ER 06:57 → TELE 06:58 → ICU WEST 17:10 → TELE-WESTW 12-10 14:51 → WEST WING 12-11 01:45
PROVIDERS: ADMIT Internal Medicine; ATTEND Internal Medicine
PROC: 5A1955Z Respiratory Ventilation, Greater than 96 Consecutive Hours (ICD-10-PCS; principal; 2013-11-30)
PROC: 0BH17EZ Insertion of Endotracheal Airway into Trachea, Via Natural or Artificial Opening (ICD-10-PCS; 2016-11-30)
PROC: 02HV33Z Insertion of Infusion Device into Superior Vena Cava, Percutaneous Approach (ICD-10-PCS; 2016-11-30)
PROC: 5A1D60Z (ICD-10-PCS; 2016-11-30)
PROC: 05H433Z Insertion of Infusion Device into Left Innominate Vein, Percutaneous Approach (ICD-10-PCS; 2016-11-30)
DX: A40.9 Streptococcal sepsis, unspecified (principal); J96.01 Acute respiratory failure with hypoxia; N17.0 Acute kidney failure with tubular necrosis; R65.21 Severe sepsis with septic shock; E10.10 Type 1 diabetes mellitus with ketoacidosis without coma; E43 Unspecified severe protein-calorie malnutrition; N18.6 End stage renal disease; J11.08 Influenza due to unidentified influenza virus with specified pneumonia; J15.20 Pneumonia due to staphylococcus, unspecified; E44.0 Moderate protein-calorie malnutrition; E87.1 Hypo-osmolality and hyponatremia; I12.0 Hypertensive chronic kidney disease with stage 5 chronic kidney disease or end stage renal disease; G93.1 Anoxic brain damage, not elsewhere classified; E83.51 Hypocalcemia; E87.8 Other disorders of electrolyte and fluid balance, not elsewhere classified; F17.210 Nicotine dependence, cigarettes, uncomplicated; D63.8 Anemia in other chronic diseases classified elsewhere; E10.21 Type 1 diabetes mellitus with diabetic nephropathy; E10.22 Type 1 diabetes mellitus with diabetic chronic kidney disease; E10.649 Type 1 diabetes mellitus with hypoglycemia without coma; Z68.25 Body mass index [BMI] 25.0-25.9, adult; E86.1 Hypovolemia; E87.6 Hypokalemia; Z99.2 Dependence on renal dialysis; E78.5 Hyperlipidemia, unspecified; R19.7 Diarrhea, unspecified
CPT/HCPCS: 31500; 36415; 36600; 51702; 71010; 71020; 71250; 74000; 76775; 80048; 80053; 81001; 82010; 82306; 82570; 82805; 82962; 83036; 83605; 83735; 83970; 84100; 84300; 84484; 85007; 85025; 85027; 85610; 85730; 86850; 86900; 86901; 87040; 87070; 87077; 87081; 87186; 87205; 87400; 87493; 87501; 90935; 93005; 94002; 94003; 94640; 96365; 96367; 96372; 96375; 97001; 97110; 97116; 97530; 99291; C9113; G9035; J0330; J0696; J0885; J1450; J1642; J1815; J1956; J2001; J2543; J2704; J3010; J3480; J3490; J7060; Q4081

== ENCOUNTER 2022-07-19 14:25 | Inpatient (IN) | payer MEDICAID ==
[~2022-07-19] VITALS: Ht 193 cm; Wt 85.4 kg
[~2022-07-19 14:25] MED LIST: INSR100KIT SC; METF-372
[2022-07-19] MEDS ORDERED: SODIUM CHLORIDE 0.9% 1,000 ML IV ONE (15:30)
[2022-07-19] MEDS ORDERED: LACTATED RINGER'S 2,000 ML IV ONE (15:30)
[2022-07-19 16:01] LABS: Basophils # (auto) 0.1 10 ^3/uL (0-0.2); Eosinophils # (auto) 0 10 ^3/uL (0-0.8); Lymphocytes # (auto) 0.7 10 ^3/uL (0.4-5.4); Monocytes # (auto) 0.4 10 ^3/uL (0-1.3); Neutrophils # (auto) 8.8 10 ^3/uL (1.6-8.6)
[2022-07-19 16:04] LABS: Basophils % (auto) 0.8 % (0.0-2.0); Hematocrit 52.7 % (41.0-53.0); Hemoglobin 17.7 g/dL (13.5-17.5); Lymphocytes % (auto) 7.3 % (10.0-50.0); Mean Corpuscular Hemoglobin 30.3 pg (28.0-32.0); Mean Corpuscular Hgb Conc. 33.6 g/dL (32.0-36.0); Mean Corpuscular Volume 90.2 fL (80.0-100.0); Monocytes % (auto) 4.2 % (0.0-12.0); Neutrophils % (auto) 87.7 % (37.0-80.0); Red Blood Cells 5.84 10^6/uL (4.5-5.90); White Blood Cell 10.1 10^3/uL (4.4-10.8)
[2022-07-19 16:22] LABS: Calcium 8.7 mg/dL (8.5-10.1); Magnesium 2.7 mg/dL (1.6-2.6); Potassium 4.1 mmol/L (3.5-5.1)
[2022-07-19 16:26] LABS: BUN/Creatinine Ratio 18.9; Bilirubin, Total 0.7 mg/dL (0.2-1.0)
[2022-07-19] MEDS: InsuLIN R (HUMAN) 100 UNITS in SODIUM CHL 0.9% 99 ML IV SCH (16:45)
[2022-07-19] MEDS ORDERED: DEXTROSE (50%) 50ML SYRG IV PRN (16:45)
[2022-07-19] MEDS ORDERED: SOD CHL 0.9%/ KCL 20MEQ 1,000 ML IV ONE (16:45)
[2022-07-19] MEDS ORDERED: ONDANSETRON HCL 4 MG/2 ML VIAL IV ONE (17:15)
[2022-07-19] MEDS: ACCU-CHEK COMFORT CURVE STRIP VI SCH ×4 (18:00→23:05)
[2022-07-19 19:12] LABS: Urine Bacteria FEW /hpf (None Seen); Urine Blood TRACE /uL (Negative); Urine Hyaline Cast FEW /lpf (0 - 2); Urine Specific Gravity 1.022 (1.001-1.035); Urine WBC 1 /hpf (0 - 3)
[2022-07-19] MEDS ORDERED: SODIUM BICARBONATE 8.4 % INJ 50ML VIAL IV ONE (20:00)
[2022-07-19] MEDS ORDERED: NITROGLYCERIN 0.4 MG SL TAB SL PRN (20:00)
[2022-07-19] MEDS ORDERED: MORPHINE SULFATE 4 MG/ML SYR/VIAL IV PRN (20:00)
[2022-07-19] MEDS ORDERED: PANTOPRAZOLE 40 MG/10 ML VIAL INJ IV ONE (20:00)
[2022-07-19 20:25] LABS: Cholesterol 268 mg/dL (< 200)
[2022-07-19 20:28] LABS: HDL Cholesterol 59 mg/dL (40-59); LDL Cholesterol 187 mg/dL (< 100); Triglycerides 200 mg/dL (< 150)
[2022-07-19] MEDS: ONDANSETRON HCL 4 MG/2 ML VIAL IV PRN (20:59)
[2022-07-19] MEDS ORDERED: INSULIN LANTUS (GLARGINE) 1 /0.01ml (100units/ml) SC ONE (21:00)
[2022-07-19] MEDS: SODIUM CHLORIDE 0.9% 1,000 ML IV SCH (22:41)
[2022-07-20] VITALS (24 sets, daily range): BP systolic 105–131; BP diastolic 56–77
[2022-07-20] MEDS: ACCU-CHEK COMFORT CURVE STRIP VI SCH ×12 (00:15→22:18)
[2022-07-20 00:30] LABS: Calcium 6.6 mg/dL (8.5-10.1); Potassium 3.1 mmol/L (3.5-5.1)
[2022-07-20 00:32] LABS: BUN/Creatinine Ratio 19.1
[2022-07-20] MEDS ORDERED: SODIUM CHLORIDE 0.9% 1,000 ML IV SCH (01:00)
[2022-07-20] MEDS: InsuLIN R (HUMAN) 100 UNITS in SODIUM CHL 0.9% 99 ML IV SCH (03:24)
[2022-07-20 05:18] LABS: BUN/Creatinine Ratio 17.5; Calcium 7.2 mg/dL (8.5-10.1); Potassium 3.2 mmol/L (3.5-5.1)
[2022-07-20] MEDS: SODIUM CHLORIDE 0.9% 1,000 ML IV SCH (07:54)
[2022-07-20] MEDS: ONDANSETRON HCL 4 MG/2 ML VIAL IV PRN ×2 (07:59→12:20)
[2022-07-20] MEDS ORDERED: INSU1INJ19 SC (08:47)
[2022-07-20] MEDS ORDERED: INSULIN LANTUS (GLARGINE) 1 /0.01ml (100units/ml) SC SCH ×2 (10:00→10:30)
[2022-07-20] MEDS: ENOXAPARIN SOD 40 MG/0.4 ML SYRINGE SC SCH (10:29)
[2022-07-20] MEDS: PANTOPRAZOLE 40 MG/10 ML VIAL INJ IV SCH (10:29)
[2022-07-20] MEDS ORDERED: SOD CHL 0.9%/ KCL 20MEQ 1,000 ML IV SCH (10:30)
[2022-07-20] MEDS ORDERED: InsuLIN R (HUMAN) 100 UNITS in SODIUM CHL 0.9% 99 ML IV SCH (10:30)
[2022-07-20 11:54] LABS: Calcium 7.4 mg/dL (8.5-10.1)
[2022-07-20 11:57] LABS: BUN/Creatinine Ratio 18.7
[2022-07-20] MEDS ORDERED: DEXTROSE (50%) 50ML SYRG IV PRN (15:00)
[2022-07-20] MEDS: INSULIN LISPRO (HUMAN) 100 UNITS/ML ML SC SCH (17:31)
[2022-07-20] MEDS ORDERED: METOCLOPRAMIDE HCL 5MG/ml INJ 2ml VIAL IV ONE (18:30)
[2022-07-20] MEDS ORDERED: METOCLOPRAMIDE HCL 5MG/ml INJ 2ml VIAL ONE (18:33)
[2022-07-20 19:02] LABS: BUN/Creatinine Ratio 16.2; Calcium 7.2 mg/dL (8.5-10.1)
[2022-07-20 19:12] LABS: Potassium 2.8 mmol/L (3.5-5.1)
[2022-07-20] MEDS ORDERED: POTASSIUM CHL 20 Meq TABLET PO ONE (20:30)
[2022-07-20] MEDS: SOD CHL 0.9%/ KCL 20MEQ 1,000 ML IV SCH (20:38)
[2022-07-20] MEDS ORDERED: INSULIN LISPRO (HUMAN) 100 UNITS/ML ML SC SCH (22:00)
[2022-07-21] VITALS (12 sets, daily range): BP systolic 109–128; BP diastolic 62–76
[2022-07-21] MEDS: ONDANSETRON HCL 4 MG/2 ML VIAL IV PRN (02:47)
[2022-07-21 05:52] LABS: BUN/Creatinine Ratio 14.3; Calcium 7.2 mg/dL (8.5-10.1); Potassium 3.1 mmol/L (3.5-5.1)
[2022-07-21] MEDS: SOD CHL 0.9%/ KCL 20MEQ 1,000 ML IV SCH (06:03)
[2022-07-21] MEDS: ACCU-CHEK COMFORT CURVE STRIP VI SCH ×2 (06:03→11:47)
[2022-07-21] MEDS: INSULIN LISPRO (HUMAN) 100 UNITS/ML ML SC SCH ×2 (06:47→11:45)
[2022-07-21] MEDS ORDERED: POTASSIUM CHL 20 Meq TABLET PO ONE (07:00)
[2022-07-21] MEDS ORDERED: CALCIUM CARB 500 MG CHEW TAB PO PRN (07:00)
[2022-07-21] MEDS ORDERED: INSULIN LANTUS (GLARGINE) 1 /0.01ml (100units/ml) SC SCH (08:45)
[2022-07-21] MEDS ORDERED: SOD CHL 0.9%/ KCL 40MEQ 1,000 ML IV SCH (09:00)
[2022-07-21] MEDS: PANTOPRAZOLE 40 MG/10 ML VIAL INJ IV SCH (10:23)
[2022-07-21] MEDS: ENOXAPARIN SOD 40 MG/0.4 ML SYRINGE SC SCH (10:23)
[2022-07-21] MEDS ORDERED: INSULIN LISPRO (HUMAN) 100 UNITS/ML ML SC SCH (11:30)
[2022-07-21] MEDS ORDERED: INSLANTI SC (13:43)
[2022-07-21] MEDS ORDERED: INSLISPI SC (13:43)
[2022-07-21] MEDS ORDERED: PANT40T PO (13:54)
== END 2022-07-21 16:09 | disposition home or self-care (01) | DRG 420 ==
LOC: ER 14:32 → TELE 22:05 → ICU CENTRL 22:58 → DOU IN ICU 07-21 01:37
PROVIDERS: ADMIT Nurse Practitioner Family; ATTEND Student in an Organized Health Care Education/Training Program
DX: E11.10 Type 2 diabetes mellitus with ketoacidosis without coma (principal); N17.9 Acute kidney failure, unspecified; K22.10 Ulcer of esophagus without bleeding; E78.5 Hyperlipidemia, unspecified; E87.6 Hypokalemia; I10 Essential (primary) hypertension; Z20.822 Contact with and (suspected) exposure to COVID-19; E11.65 Type 2 diabetes mellitus with hyperglycemia; F17.210 Nicotine dependence, cigarettes, uncomplicated; Z79.4 Long term (current) use of insulin; Z83.3 Family history of diabetes mellitus; Z91.14 Patient's other noncompliance with medication regimen
CPT/HCPCS: 36415; 36600; 71045; 80048; 80053; 80061; 81001; 82010; 82805; 82962; 83036; 83605; 83690; 83735; 83880; 83930; 84484; 85025; 87081; 93005; 96361; 96365; 96372; 96375; 99291; C9113; G0378; J1815; J2405

== ENCOUNTER 2022-09-29 09:37 | Emergency (ER) | payer MEDICAID ==
[~2022-09-29] VITALS: Ht 193 cm; Wt 94.4 kg
[~2022-09-29 09:37] MED LIST changes: +INSLANTI SC; +INSLISPI SC; -INSR100KIT SC; -METF-372; +PANT40T PO
[2022-09-29 09:55] VITALS: BP 119/71
[2022-09-29] MEDS ORDERED: BACDST PO (10:55)
[2022-09-29] MEDS ORDERED: CEPH-510 PO (10:55)
[2022-09-29] MEDS ORDERED: IBUP600T28 PO (10:56)
[2022-09-29] MEDS ORDERED: cefTRIAXone SOD 1,000 MG VL IM ONE (11:00)
[2022-09-29] MEDS ORDERED: KETOROLAC TROMETH 30 MG/ML 1ML VIAL IM ONE (11:00)
[2022-09-29] MEDS ORDERED: LIDOCAINE 1% HCL (LOCAL ANESTH.) INJ 20ML MDV IJ ONE (11:00)
[2022-09-29] MEDS ORDERED: LIDOCAINE 1% HCL (LOCAL ANESTH.) INJ 20ML MDV ONE (11:04)
== END 2022-09-29 11:20 | disposition home or self-care (01) ==
LOC: ER 09:37
DX: S90.852A Superficial foreign body, left foot, initial encounter (principal); L03.116 Cellulitis of left lower limb; E11.8 Type 2 diabetes mellitus with unspecified complications; E78.5 Hyperlipidemia, unspecified; I10 Essential (primary) hypertension; F17.210 Nicotine dependence, cigarettes, uncomplicated; F12.90 Cannabis use, unspecified, uncomplicated; Z79.899 Other long term (current) drug therapy; X58.XXXA Exposure to other specified factors, initial encounter; Y93.89 Activity, other specified; Y92.89 Other specified places as the place of occurrence of the external cause; Y99.8 Other external cause status
CPT/HCPCS: 73630; 96372; 99284; J0696; J1885; J2001

== ENCOUNTER 2024-12-01 10:46 | Inpatient (IN) | payer MEDICAID ==
[~2024-12-01] VITALS: Ht 193 cm; Wt 88.4 kg
[~2024-12-01 10:46] MED LIST changes: +BACDST PO; +CEPH-510 PO; +IBUP-1456 PO; +IBUP1TAB5 PO
--- NOTE | 2024-12-01 11:01 | ED.PDOC ---
History of present illness HPI Comments Initial Vital Signs: Temp : 98F BP: 119/74 HR: 88 RR: 18 SpO2: 99% Accucheck: 475, 461 on repeat Past Medical History: DM, HTN, HLD Past Surgical History: Denies Social History: Denies cigarettes, ETOH, or drug use Medications: Insulin Allergies: NKDA HPI: Poor Historian. 44-year-old male with a history of diabetes presents to the ED stating I am in DKA. Patient complains of 2-3 day history of fatigue nausea and vomiting and high blood sugar at home despite taking insulin. Most recent insulin intake was this morning 15 units. Past Medical History: Diabetes, hypertension, hyperlipidemia Past Surgical History: Denies any REVIEW OF SYSTEMS: CONSTITUTIONAL: Denies acute: fever, diaphoresis, chills, HEAD: Denies acute: headache, photophobia Eyes: Denies acute: Double vision, vision loss, eye pain, eye discharge. EARS: Denies acute: tinnitus, hearing loss, ear discharge, ear pain, THROAT: Denies acute: sore throat, swelling, difficulty swallowing , pain with swallowing, change in voice. NECK: Denies acute: neck pain, neck swelling, stiff neck. HEART: Denies acute : chest pain, palpitations, LUNGS: Denies acute: SOB, wheezing, cough, hemoptysis ABDOMEN: Denies acute: abdominal pain, diarrhea, melena , hematemesis, hematochezia SKIN: Denies acute: rash, redness, lesions, itchiness. EXTREMITIES: Denies acute: calf pain, numbness, tingling, weakness, denies pain in extremity. Denies acute: Low back pain. Neuro: Denies acute: focal neurological deficit, motor or sensory focal neurological deficit, tremors, seizure like activity, confusion, dizziness, change in mental status, loss of bowel or bladder function, cauda equina like symptoms. : Denies acute: dysuria, hematuria, flank pain, increase in urinary frequency. PSYCH: Denies acute: hallucination, suicidal ideation, homicidal ideation. PHYSICAL EXAM: General: no acute distress, awake and alert. Head: normocephalic, atraumatic. Neck: supple, trachea is midline, no swelling. Throat: Normal phonation. Eyes:, no erythema, no purulent discharge, no proptosis, no icterus. Heart: regular rate, regular rhythm, no significant murmur appreciated. Lungs: no apparent respiratory distress, Able to speak in full sentences. No wheezing, no rhonchi, no crackles. No stridors Clear to auscultation bilaterally. Abdomen: non tender to palpation, non distended, soft, no guarding, no rebound, + bowel sounds. Neuro: Awake, Alert, oriented to name, self, situation, follows commands GCS=15. Speech is normal. Skin: no petechia, no purpura, no cyanosis, non-pale, not jaundice. Lower extremities: --no - Pitting edema no deformity, no focal swelling, no calf TTP. Makes eye contact. moves all four extremities. Face: no apparent facial droop. Ambulating in the ED independently. ED COURSE: Time Seen by MD: 10:53 Primary Care Provider: DENIES History of present illness: Medications, Allergies Allergies: Coded Allergies: NO KNOWN ALLERGIES (Unverified , 11/30/16) Home Meds Active Scripts Ibuprofen (Ibuprofen) 800 Mg Tab, 1 TAB PO TID, #30 TAB Prov:JENNIFER DAVIS 12/09/22 Ibuprofen Micronized (Ibuprofen) 600 Mg Tab, 600 MG PO Q8HPRN PRN, #30 TAB 0 Refills Prov:CELINA ONTIVEROS [facility] 09/29/22 Sulfamethoxazole W/Trimethopri (Bactrim Ds Tablet) 1 Tab Tb, 1 TAB PO BID for 10 Days, #20 TAB 0 Refills Prov:CELINA ONTIVEROS [facility] 09/29/22 Cephalexin ( Keflex 500) 500 Mg Cap, 1 CAP PO QID for 10 Days, #40 CAP 0 Refills Prov:CELINA ONTIVEROS [facility] 09/29/22 Pantoprazole Sodium Sesquihydr (Pantoprazole Sodium) 40 Mg Tab, 40 MG PO DAILY for 14 Days, #14 TAB 1 Refill Prov:RAFAEL HUERTAS MD 07/21/22 Insulin Lispro (Human) (Humalog) 100 Unit/Ml Inj, 10 UNITS SC AC for 30 Days, #30 INJ Prov:RAFAEL HUERTAS MD 07/21/22 Insulin Glargine (Lantus) 100 Unit/Ml Inj, 30 UNITS SC DAILY for 30 Days, INJ Prov:RAFAEL HUERTAS MD 07/21/22 Information Source: Patient Mode of Arrival: Ambulatory Was a procedure done? Was a procedure done?: No Differential Diagnosis (DM) Differential Diagnosis: Dehydration, Diabetic Coma, DKA, Electrolyte Abnormality, Encephalopathy, Gastritis, Gastroenteritis, Hepatitis, Hyperglycemia, Hyperosmolar State, Hypoglycemia, Pancreatitis, Pyelonephritis, UTI X-Ray, Labs, Meds, VS Vital Signs Date Time Temp Pulse Resp B/P (MAP) Pulse Ox O2 Delivery O2 Flow Rate FiO2 12/01/24 11:06 Room Air* 0 21 12/01/24 10:54 98.0 88 18 119/74 (89) 99 Lab Test 12/01/24 13:37 12/01/24 12:54 12/01/24 11:14 12/01/24 11:07 Range/Units POC Glucose 318 H 70-106 mg/dl Sodium Level 137 136-145 mmol/L Potassium Level 4.4 3.5-5.1 mmol/L Chloride Level 94 L 98-107 mmol/L Carbon Dioxide Level 22 20-31 mmol/L Anion Gap 21 H 5-15 Blood Urea Nitrogen 28 H 9-23 mg/dL Creatinine 1.50 H 0.700-1.30 mg/dL Glomerular Filtration Rate Calc 58 >90 mL/min BUN/Creatinine Ratio 18.7 10.0-20.0 Serum Glucose 376 H 74-106 mg/dL Lactic Acid Level 5.5 *H 3.1 *H 0.4-2.0 mmol/L Calcium Level 10.3 8.7-10.4 mg/dL Phosphorus Level 4.5 2.4-5.1 mg/dL Blood Gas Specimen Type Arterial Blood Gas Sample Site Right radial Blood Gas Patient Temperature 37.0 Arterial Blood Date Drawn Arterial Blood pH 7.383 7.350-7.450 Arterial Blood Partial Pressure CO2 24.9 L 35.0-48.0 mmHg Arterial Blood Partial Pressure O2 81.7 L 83.0-108.0 mmHg Arterial Blood HCO3 14.5 L 21.0-28.0 mmol/L Arterial Blood Oxygen Saturation 96.2 94.0-98.0 % Arterial Blood Base Excess -8.0 L -2.0-3.0 mmol/L Arterial Blood Oxyhemoglobin 94.1 94.0-98.0 % Arterial Blood Carboxyhemoglobin 1.4 0.5-1.5 % Arterial Blood Methemoglobin 0.8 0.0-1.5 % Juarez Test Yes Blood Gas Total Hemoglobin 18.80 *H 13.5-17.5 g/dL Blood Gas Modality Room air FiO2 % 21.0 Blood Gas Critical Value Read Back Yes Blood Gas Notified Whom Dr. mackey Blood Gas Notified Time [id number] Blood Gas Notified By Leonardo dooley, deployment manager Test 12/01/24 11:03 12/01/24 10:54 12/01/24 10:51 Range/Units White Blood Count 13.9 H 4.4-10.8 10^3/uL Red Blood Count 5.57 4.5-5.90 10^6/uL Hemoglobin 17.2 13.5-17.5 g/dL Hematocrit 52.0 41.0-53.0 % Mean Corpuscular Volume 93.4 80.0-100.0 fL Mean Corpuscular Hemoglobin 30.9 28.0-32.0 pg Mean Corpuscular Hemoglobin Concent 33.1 32.0-36.0 g/dL Red Cell Distribution Width 14.9 H 11.8-14.3 % Platelet Count 239 140-450 10^3/uL Mean Platelet Volume 8.7 6.9-10.8 fL Neutrophils (%) (Auto) 91.1 H 37.0-80.0 % Lymphocytes (%) (Auto) 5.6 L 10.0-50.0 % Monocytes (%) (Auto) 2.7 0.0-12.0 % Eosinophils (%) (Auto) 0.3 0.0-7.0 % Basophils (%) (Auto) 0.3 0.0-2.0 % Neutrophils # (Auto) 12.7 H 1.6-8.6 10 ^3/uL Lymphocytes # (Auto) 0.8 0.4-5.4 10 ^3/uL Monocytes # (Auto) 0.4 0-1.3 10 ^3/uL Eosinophils # (Auto) 0 0-0.8 10 ^3/uL Basophils # (Auto) 0 0-0.2 10 ^3/uL Nucleated Red Blood Cells 0.0 % Sodium Level 133 L 136-145 mmol/L Potassium Level 4.8 3.5-5.1 mmol/L Chloride Level 94 L 98-107 mmol/L Carbon Dioxide Level 16 L 20-31 mmol/L Anion Gap 23 H 5-15 Blood Urea Nitrogen 27 H 9-23 mg/dL Creatinine 1.49 H 0.700-1.30 mg/dL Glomerular Filtration Rate Calc 58 >90 mL/min BUN/Creatinine Ratio 18.1 10.0-20.0 Serum Glucose 446 *H 74-106 mg/dL Hemoglobin A1c Pending Serum Osmolality 318 H 278-298 mOsm/kg Calcium Level 10.3 8.7-10.4 mg/dL Magnesium Level 1.7 1.6-2.6 mg/dL Total Bilirubin 0.7 0.2-1.0 mg/dL Aspartate Amino Transferase (AST) 22 13-40 U/L Alanine Aminotransferase (ALT) 29 7-40 U/L Alkaline Phosphatase 97 46-116 U/L Troponin I High Sensitivity < 3 L </=54 ng/L Total Protein 7.2 5.7-8.2 g/dL Albumin 5.0 H 3.2-4.8 g/dL Beta-Hydroxybutyric Acid > 4.500 H < 0.4 mmol/L POC Glucose 461 *H 475 *H 70-106 mg/dl Current Medications Medications (Trade) Dose Ordered Sig/Jignesh Route Start Time Stop Time Status Last Admin Sodium Chloride 1,000 ml @ 1,000 mls/hr Q1H ONCE IV 12/01/24 11:15 12/01/24 12:14 DC 12/01/24 11:15 Sodium Chloride 1,000 ml @ 500 mls/hr Q2H IV 12/01/24 12:00 12/01/24 15:59 12/01/24 14:01 Insulin Human (Reg)/Sodium Chloride 100 ml @ 0.5 mls/hr Q24H IV 12/01/24 12:00 12/01/24 13:53 Diagnostic Test (Pha) (Accu-Chek Comfort Curve T) 1 strip Q90MIN 12/01/24 12:00 12/01/24 15:00 Insulin Human Regular (InsuLIN R) 10 units ONCE ONCE IV 12/01/24 12:00 12/01/24 12:24 DC 12/01/24 12:00 Potassium Chloride (Klor-Con Tablet) 20 meq ONCE ONCE PO 12/01/24 12:00 12/01/24 12:24 DC 12/01/24 12:00 Sodium Chloride 1,000 ml @ 1,000 mls/hr Q1H ONCE IV 12/01/24 14:15 12/01/24 15:14 DC 12/01/24 15:20 Time of 1ST Reevaluation: 11:53 Reevaluation 1ST: Unchanged Patient Education/Counseling: Diagnosis, Treatment Family Education/Counseling: No Family Present Comments Patient presented with the above HPI.---hyperglycemia/DKA---workup was initiated. patient was found with the above mentioned diagnosis. the following medications were ordered: please refer to order lists of meds and tests obtained by myself Dr. Mackey. Patient ED course and VS have been stabilized. Patient has been reassessed in the ED and remained in a stable condition. Pertinent incidental findings were discussed with the patient and/or family. Patient/family voices understanding and is agreeable with plan. Patient has been observed in the ED adequate length of time to insure improvement/stability. Escalation of care considered: Consideration of escalation to observation or admission DKA protocol initiated. Patient has elevated lactic acid and leukocytosis, empiric antibiotics initiated. Patient was ADMITTED to the medicine team for further evaluation and treatment of their presentation. All the reports of any imaging studies that were ordered by myself were reviewed by myself. Departure 1 Departure Time of Disposition: 12:02 Impression: Primary Impression: DKA (diabetic ketoacidosis) Disposition: 09 ADMITTED INPATIENT Admit to: ICU Condition: Critical Critical Care Note Critical Care Time?: Yes (45 min-critical care time only) Heart Score Heart Score: Heart Score Response (Comments) Value History N/A 0 EKG N/A 0 Age N/A 0 Risk Factors N/A 0 Troponin N/A 0 Total 0 I personally scribed for RUPA MACKEY DO ([email or web address]) on 12/01/24 at 11:01. Electronically submitted by Santiago Manzo ([email or web address]). I personally scribed for RUPA MACKEY DO ([email or web address]) on 2/22/25 at 11:05. Electronically submitted by Santiago Manzo ([email or web address]). I personally scribed for RUPA MACKEY DO ([email or web address]) on 12/01/24 at 12:04. Electronically submitted by Santiago Manzo ([email or web address]). RUPA MACKEY DO Dec 01, 2024 11:01
[2024-12-01] MEDS: SODIUM CHLORIDE 0.9% 1,000 ML IV ONE ×2 (11:15→15:20)
[2024-12-01 11:16] LABS: Basophils # (auto) 0 10 ^3/uL (0-0.2); Basophils % (auto) 0.3 % (0.0-2.0); Eosinophils # (auto) 0 10 ^3/uL (0-0.8); Eosinophils % (auto) 0.3 % (0.0-7.0); Hemoglobin 17.2 g/dL (13.5-17.5); Lymphocytes # (auto) 0.8 10 ^3/uL (0.4-5.4); Lymphocytes % (auto) 5.6 % (10.0-50.0); Mean Corpuscular Hemoglobin 30.9 pg (28.0-32.0); Mean Corpuscular Hgb Conc. 33.1 g/dL (32.0-36.0); Mean Corpuscular Volume 93.4 fL (80.0-100.0); Monocytes # (auto) 0.4 10 ^3/uL (0-1.3); Monocytes % (auto) 2.7 % (0.0-12.0); Neutrophils # (auto) 12.7 10 ^3/uL (1.6-8.6); Neutrophils % (auto) 91.1 % (37.0-80.0); Platelet Count (auto) 239 10^3/uL (140-450); Red Blood Cells 5.57 10^6/uL (4.5-5.90); Red Cell Distribution Width 14.9 % (11.8-14.3); White Blood Cell 13.9 10^3/uL (4.4-10.8)
[2024-12-01 11:48] LABS: Alanine Aminotransferase 29 U/L (7-40); Alkaline Phosphatase 97 U/L (46-116); Anion Gap 23 (5-15); Aspartate Aminotransferase 22 U/L (13-40); BUN/Creatinine Ratio 18.1 (10.0-20.0); Calcium 10.3 mg/dL (8.7-10.4); Magnesium 1.7 mg/dL (1.6-2.6); Potassium 4.8 mmol/L (3.5-5.1)
[2024-12-01 11:49] LABS: Bilirubin, Total 0.7 mg/dL (0.2-1.0); Total Protein 7.2 g/dL (5.7-8.2)
[2024-12-01 11:54] LABS: Carbon Dioxide 16 mmol/L (20-31); Chloride 94 mmol/L (98-107); Sodium 133 mmol/L (136-145)
[2024-12-01 11:57] LABS: Blood Urea Nitrogen 27 mg/dL (9-23); Glucose 446 mg/dL (74-106)
[2024-12-01 11:57] LABS: Lactic Acid w/Reflex 3.1 mmol/L (0.4-2.0)
[2024-12-01] MEDS: POTASSIUM CHL 20 Meq TABLET PO ONE (12:00)
[2024-12-01] MEDS ORDERED: DEXTROSE (50%) 50ML SYRG IV PRN (12:00)
[2024-12-01] MEDS: ACCU-CHEK COMFORT CURVE STRIP VI SCH (12:00)
[2024-12-01] MEDS: InsuLIN REG 1unit/0.01ml Soln (100units/ml) IV ONE (12:00)
[2024-12-01] MEDS: SODIUM CHLORIDE 0.9% 1,000 ML IV SCH ×2 (12:00→16:20)
[2024-12-01 13:48] LABS: Potassium 4.4 mmol/L (3.5-5.1); Sodium 137 mmol/L (136-145)
[2024-12-01 13:49] LABS: Anion Gap 21 (5-15); Calcium 10.3 mg/dL (8.7-10.4); Carbon Dioxide 22 mmol/L (20-31); Chloride 94 mmol/L (98-107)
[2024-12-01] MEDS: INSULIN DRIP 100 UNIT/100ML 100 ML IV SCH (13:53)
[2024-12-01 13:54] LABS: BUN/Creatinine Ratio 18.7 (10.0-20.0)
[2024-12-01 13:56] LABS: Phosphorus 4.5 mg/dL (2.4-5.1)
[2024-12-01 13:57] LABS: Blood Urea Nitrogen 28 mg/dL (9-23); Glucose 376 mg/dL (74-106)
[2024-12-01 14:30] VITALS: PULSE 64; RESP 20; O2SAT 99
[2024-12-01] MEDS ORDERED: NITROGLYCERIN 0.4 MG SL TAB SL PRN (14:45)
[2024-12-01] MEDS ORDERED: MORPHINE SULFATE INJ 2 MG/ml SYRG IV PRN (14:45)
[2024-12-01] MEDS ORDERED: ACETAMINOPHEN 325 MG TAB PO PRN (14:45)
[2024-12-01] MEDS ORDERED: IBUPROFEN 600 MG TAB PO PRN (14:45)
--- NOTE | 2024-12-01 14:59 | DVHHP2 ---
History of Present Illness Reason for Visit: DKA History of Present Illness This is a 44-year-old male with history of hypertension, hyperlipidemia, and type 2 DM presents to ED with chief complaint of blood sugar in the 300s, associated with fatigue, nausea and loss of appetite x3 days. He states last DKA episode occurred in 2021. Evaluated patient in ER bed 7, alert oriented x4 able to answer all questions and concerns. The patient received 2 L normal saline and is on insulin protocol 4 units/hour at this time. The patient will be admitted under hospitalist care to the intensive care unit for further monitoring. The patient denies fever, chills, headache, dizziness, palpitation, chest pain, vomiting, abdominal pain, diarrhea, constipation and other associated symptoms. The plan has been discussed with the patient and pauline kamara RN in which all questions concerns have been addressed. Cardiovascular: HTN, hyperipidemia Endocrine: Diabetes Past Surgical History: None Family History: None, Cancer Smoke: No ALCOHOL: none Drugs: Marijuana Lives: with Family Domestic Violence: Neg Review of Systems Constitutional: Yes: Weakness Gastrointestinal: Nausea Allergies: Coded Allergies: NO KNOWN ALLERGIES (Unverified , 11/30/16) Medications Current Medications Medications Dose Ordered Sig/Jignesh Route Start Time Stop Time Status Last Admin Dose Admin Sodium Chloride 1,000 ml @ 500 mls/hr Q2H IV 12/01/24 12:00 12/01/24 15:59 12/01/24 14:01 500 MLS/HR Insulin Human (Reg)/Sodium Chloride 100 ml @ 0.5 mls/hr Q24H IV 12/01/24 12:00 12/01/24 13:53 4 MLS/HR Dextrose 50 ml UD PRN IV 12/01/24 12:00 Diagnostic Test (Pha) 1 strip Q90MIN 12/01/24 12:00 12/01/24 13:54 1 STRIP Sodium Chloride 1,000 ml @ 120 mls/hr Q8H20M IV 12/01/24 14:45 UNV Ondansetron HCl 4 mg Q4HP PRN IV 12/01/24 14:45 UNV Enoxaparin Sodium 40 mg DAILY SC 12/02/24 10:00 UNV Acetaminophen 650 mg Q6HP PRN PO 12/01/24 14:45 UNV Nitroglycerin 0.4 mg Q5MINP PRN SL 12/01/24 14:45 UNV Morphine Sulfate 2 mg Q30M PRN IV 12/01/24 14:45 UNV Exam Vital Signs Vital Signs Date Time Temp Pulse Resp B/P (MAP) Pulse Ox O2 Delivery O2 Flow Rate FiO2 12/01/24 11:06 Room Air* 0 21 12/01/24 10:54 98.0 88 18 119/74 (89) 99 General Appearance: Alert, Oriented X3, Cooperative, No acute distress HEENT: Atraumatic, PERRLA, Mucous membr. moist/pink Respiratory: Clear to auscultation, Normal air movement Cardiovascular: Normal S1, Normal S2, No murmurs Abdominal: Normal bowel sounds, No tenderness, No hepatospenomegaly, No masses Extremities: No clubbing, No cyanosis, No edema, Normal pulses, No tenderness/swelling Skin: No rashes Neuro: Normal gait, Normal speech, Strength at 5/5 X4 ext, Normal tone, Sensation intact, Cranial nerves 3-12 NL, Reflexes 2+ Psych/Mental Status: Mental status NL Labs/Xrays Labs Test 12/01/24 13:37 12/01/24 12:54 12/01/24 11:14 12/01/24 11:03 Range/Units POC Glucose 318 H 70-106 mg/dl Sodium Level 137 136-145 mmol/L Potassium Level 4.4 3.5-5.1 mmol/L Chloride Level 94 L 98-107 mmol/L Carbon Dioxide Level 22 20-31 mmol/L Anion Gap 21 H 5-15 Blood Urea Nitrogen 28 H 9-23 mg/dL Creatinine 1.50 H 0.700-1.30 mg/dL Glomerular Filtration Rate Calc 58 >90 mL/min BUN/Creatinine Ratio 18.7 10.0-20.0 Serum Glucose 376 H 74-106 mg/dL Lactic Acid Level 5.5 *H 0.4-2.0 mmol/L Calcium Level 10.3 8.7-10.4 mg/dL Phosphorus Level 4.5 2.4-5.1 mg/dL Blood Gas Specimen Type Arterial Blood Gas Sample Site Right radial Blood Gas Patient Temperature 37.0 Arterial Blood Date Drawn [id number] Arterial Blood pH 7.383 7.350-7.450 Arterial Blood Partial Pressure CO2 24.9 L 35.0-48.0 mmHg Arterial Blood Partial Pressure O2 81.7 L 83.0-108.0 mmHg Arterial Blood HCO3 14.5 L 21.0-28.0 mmol/L Arterial Blood Oxygen Saturation 96.2 94.0-98.0 % Arterial Blood Base Excess -8.0 L -2.0-3.0 mmol/L Arterial Blood Oxyhemoglobin 94.1 94.0-98.0 % Arterial Blood Carboxyhemoglobin 1.4 0.5-1.5 % Arterial Blood Methemoglobin 0.8 0.0-1.5 % Juarez Test Yes Blood Gas Total Hemoglobin 18.80 *H 13.5-17.5 g/dL Blood Gas Modality Room air FiO2 % 21.0 Blood Gas Critical Value Read Back Yes Blood Gas Notified Whom Dr. barnhart Blood Gas Notified Time [id number] Blood Gas Notified By Leonardo dooley rrt White Blood Count 13.9 H 4.4-10.8 10^3/uL Red Blood Count 5.57 4.5-5.90 10^6/uL Hemoglobin 17.2 13.5-17.5 g/dL Hematocrit 52.0 41.0-53.0 % Mean Corpuscular Volume 93.4 80.0-100.0 fL Mean Corpuscular Hemoglobin 30.9 28.0-32.0 pg Mean Corpuscular Hemoglobin Concent 33.1 32.0-36.0 g/dL Red Cell Distribution Width 14.9 H 11.8-14.3 % Platelet Count 239 140-450 10^3/uL Mean Platelet Volume 8.7 6.9-10.8 fL Neutrophils (%) (Auto) 91.1 H 37.0-80.0 % Lymphocytes (%) (Auto) 5.6 L 10.0-50.0 % Monocytes (%) (Auto) 2.7 0.0-12.0 % Eosinophils (%) (Auto) 0.3 0.0-7.0 % Basophils (%) (Auto) 0.3 0.0-2.0 % Neutrophils # (Auto) 12.7 H 1.6-8.6 10 ^3/uL Lymphocytes # (Auto) 0.8 0.4-5.4 10 ^3/uL Monocytes # (Auto) 0.4 0-1.3 10 ^3/uL Eosinophils # (Auto) 0 0-0.8 10 ^3/uL Basophils # (Auto) 0 0-0.2 10 ^3/uL Nucleated Red Blood Cells 0.0 % Serum Osmolality 318 H 278-298 mOsm/kg Magnesium Level 1.7 1.6-2.6 mg/dL Total Bilirubin 0.7 0.2-1.0 mg/dL Aspartate Amino Transferase (AST) 22 13-40 U/L Alanine Aminotransferase (ALT) 29 7-40 U/L Alkaline Phosphatase 97 46-116 U/L Troponin I High Sensitivity < 3 L </=54 ng/L Total Protein 7.2 5.7-8.2 g/dL Albumin 5.0 H 3.2-4.8 g/dL Beta-Hydroxybutyric Acid > 4.500 H < 0.4 mmol/L Assessment/Plan Assessment/Plan DKA--patient admitted for elevated blood sugar associated with fatigue, weakness and nausea x3 days Last DKA episode 2021 Last HGB A1c 11.2 in 2021 Received 2 L normal saline bolus in the ER Insulin drip initiated in the ER, along with potassium replacement p.o. Admit to intensive care unit Reviewed CBC shows leukocytosis Reviewed BMP elevated gap 21, elevated serum osmolality 318, creatinine 1.50 Potassium level 4.4 Reviewed ABG as follows 7.38/24.9/81.7/14.5/-8.0 Continue insulin algorithm 1. Accu-Cheks per protocol 1800 ADA diet IV hydration Continue to monitor Lactic acid 5.5 IV hydration Lactic acidosis 5.5 IV hydration Consider IV antibiotics if needed Recheck lactic acid q.6 hours Continue to monitor JOYCE likely due to dehydration IV hydration Continue to monitor labs Reconcile home medication DVT prophylaxis PUD prophylaxis patient currently on Protonix at home Labs in a.m. Discussed plan of care with the patient and primary RN in which all questions concerns have been addressed Plan discussed with: Patient My Orders Orders - DION BAJWA Procedure Category Date Status Time Admit ADMIT 12/01/24 Transmitted 14:34 2 Gm Sodium Diet DIET 12/01/24 Transmitted Dinner Sodium Chloride 0.9% PHA 12/01/24 Logged 14:45 Ondansetron Hcl PHA 12/01/24 Logged (Zofran) 14:45 Enoxaparin Sodium PHA 12/02/24 Logged (Lovenox) 10:00 Complete Blood Count LAB 12/02/24 Verified 04:00 Comprehensive LAB 12/02/24 Verified Metabolic Panel 04:00 Condition: Serious ANTON 12/01/24 In Process 14:34 Acetaminophen Tablet PHA 12/01/24 Logged (Tylenol Tablet) 14:45 Bedrest With Bathroom [facility] 12/01/24 In Process Privileg 14:34 Nitroglycerin PHA 12/01/24 Logged Sublingual (Ntrostat 14:45 Morphine Sulfate PHA 12/01/24 Logged Injection 14:45 Stat Ekg For Chest [facility] 12/01/24 In Process Pain 14:34 Notify Of Changes [facility] 12/01/24 In Process From Base 14:34 Export Clerk For [facility] 12/01/24 In Process 24 Hours 14:34 Emergency Dysrhythmia [facility] 12/01/24 In Process Protocol 14:34 Rhythm Strips Once [facility] 12/01/24 In Process Every Shift 14:34 Oxygen By Nasal RT 12/01/24 Transmitted Cannula 14:34 Hemoglobin A1c LAB 12/01/24 Logged 14:37 Lactic Acid W/ Reflex LAB 12/01/24 Logged Order 18:00 Lactic Acid W/ Reflex LAB 12/02/24 Verified Order 00:00 Magnesium LAB 12/01/24 Logged 14:40 Ibuprofen Tablet PHA 12/01/24 Transmitted (Motrin Tablet) 14:45 Pantoprazole Tablet PHA 12/02/24 Transmitted (Protonix Tablet) 10:00 Date of Service: Dec 01, 2024 Billing Provider: DION BAJWA Common Visit Codes: [id number] CARE 30-74 MIN DION BAJWAP Dec 01, 2024 14:59
[2024-12-01 16:07] LABS: Urine Bacteria None Seen /hpf (None Seen)
[2024-12-01 16:30] LABS: Urine Blood 1+ /uL (Negative); Urine Clarity Clear (Clear); Urine Color Light-Yellow (Yellow); Urine Protein, UAD Negative (Negative); Urine Specific Gravity 1.025 (1.001-1.035); Urine Squamous Epithelial Cell None Seen /hpf (<5); Urine Urobilinogen Normal (Negative); Urine WBC < 1 /HPF (0-3)
[2024-12-01] MEDS: PIPERACILLIN-TAZOB 3.375GM 100 ML IV ONE (16:58)
[2024-12-01] MEDS: ONDANSETRON HCL 4 MG/2 ML VIAL IV PRN (16:58)
[2024-12-02] VITALS (12 sets, daily range): BP systolic 127–153; BP diastolic 66–82; PULSE 57–87; RESP 1–18; TEMP 36.8; O2SAT 96–99
[2024-12-02 06:26] LABS: Basophils # (auto) 0.1 10 ^3/uL (0-0.2); Eosinophils # (auto) 0.3 10 ^3/uL (0-0.8); Eosinophils % (auto) 3.1 % (0.0-7.0); Hemoglobin 14.7 g/dL (13.5-17.5); Lymphocytes # (auto) 1.9 10 ^3/uL (0.4-5.4); Lymphocytes % (auto) 21.1 % (10.0-50.0); Mean Corpuscular Hemoglobin 30.9 pg (28.0-32.0); Mean Corpuscular Hgb Conc. 33.5 g/dL (32.0-36.0); Mean Corpuscular Volume 92.2 fL (80.0-100.0); Monocytes # (auto) 0.6 10 ^3/uL (0-1.3); Monocytes % (auto) 7.2 % (0.0-12.0); Neutrophils % (auto) 67.6 % (37.0-80.0); Nucleated Red Blood Cells % 0.1 %; Platelet Count (auto) 178 10^3/uL (140-450); Red Blood Cells 4.77 10^6/uL (4.5-5.90); Red Cell Distribution Width 14.4 % (11.8-14.3); White Blood Cell 8.8 10^3/uL (4.4-10.8)
[2024-12-02 07:14] LABS: Alanine Aminotransferase 17 U/L (7-40); Alkaline Phosphatase 64 U/L (46-116); Anion Gap 10 (5-15)
[2024-12-02 07:15] LABS: Albumin 3.6 g/dL (3.2-4.8); Bilirubin, Total 0.5 mg/dL (0.2-1.0)
[2024-12-02 07:53] LABS: Aspartate Aminotransferase < 8 U/L (13-40); Calcium 8.8 mg/dL (8.7-10.4); Carbon Dioxide 22 mmol/L (20-31); Chloride 107 mmol/L (98-107); Glucose 165 mg/dL (74-106); Sodium 139 mmol/L (136-145); Total Protein 5.5 g/dL (5.7-8.2)
[2024-12-02 08:09] LABS: BUN/Creatinine Ratio 16.3 (10.0-20.0); Blood Urea Nitrogen 16 mg/dL (9-23)
[2024-12-02] MEDS: ENOXAPARIN SOD 40 MG/0.4 ML SYRINGE SC SCH (10:10)
[2024-12-02] MEDS: PANTOPRAZOLE 40 MG TAB PO SCH (10:10)
[2024-12-02 12:02] LABS: Chloride 105 mmol/L (98-107); Potassium 3.6 mmol/L (3.5-5.1); Sodium 137 mmol/L (136-145)
[2024-12-02 12:03] LABS: Anion Gap 7 (5-15); BUN/Creatinine Ratio 13.8 (10.0-20.0); Blood Urea Nitrogen 13 mg/dL (9-23); Calcium 8.6 mg/dL (8.7-10.4); Carbon Dioxide 25 mmol/L (20-31); Glucose 215 mg/dL (74-106)
[2024-12-02] MEDS: INSULIN LANTUS (GLARGINE) 1 /0.01ml (100units/ml) SC ONE (15:06)
--- NOTE | 2024-12-02 16:23 | DVHDS2 ---
Discharge Summary Date of Admission Dec 01, 2024 at 14:34 Date of Discharge: Dec 02, 2024 Labs/Diagnostic Data: Laboratory Results Test 12/02/24 15:03 12/02/24 11:07 12/02/24 05:54 12/02/24 00:11 POC Glucose 287 mg/dl (70-106) Sodium Level 137 mmol/L (136-145) Potassium Level 3.6 mmol/L (3.5-5.1) Chloride Level 105 mmol/L (98-107) Carbon Dioxide Level 25 mmol/L (20-31) Anion Gap 7 (5-15) Blood Urea Nitrogen 13 mg/dL (9-23) Creatinine 0.94 mg/dL (0.700-1.30) Glomerular Filtration Rate Calc 101 mL/min (>90) BUN/Creatinine Ratio 13.8 (10.0-20.0) Serum Glucose 215 mg/dL (74-106) Calcium Level 8.6 mg/dL (8.7-10.4) White Blood Count 8.8 10^3/uL (4.4-10.8) Red Blood Count 4.77 10^6/uL (4.5-5.90) Hemoglobin 14.7 g/dL (13.5-17.5) Hematocrit 44.0 % (41.0-53.0) Mean Corpuscular Volume 92.2 fL (80.0-100.0) Mean Corpuscular Hemoglobin 30.9 pg (28.0-32.0) Mean Corpuscular Hemoglobin Concent 33.5 g/dL (32.0-36.0) Red Cell Distribution Width 14.4 % (11.8-14.3) Platelet Count 178 10^3/uL (140-450) Mean Platelet Volume 7.8 fL (6.9-10.8) Neutrophils (%) (Auto) 67.6 % (37.0-80.0) Lymphocytes (%) (Auto) 21.1 % (10.0-50.0) Monocytes (%) (Auto) 7.2 % (0.0-12.0) Eosinophils (%) (Auto) 3.1 % (0.0-7.0) Basophils (%) (Auto) 1.0 % (0.0-2.0) Neutrophils # (Auto) 6.0 10 ^3/uL (1.6-8.6) Lymphocytes # (Auto) 1.9 10 ^3/uL (0.4-5.4) Monocytes # (Auto) 0.6 10 ^3/uL (0-1.3) Eosinophils # (Auto) 0.3 10 ^3/uL (0-0.8) Basophils # (Auto) 0.1 10 ^3/uL (0-0.2) Nucleated Red Blood Cells 0.1 % Total Bilirubin 0.5 mg/dL (0.2-1.0) Aspartate Amino Transferase (AST) < 8 U/L (13-40) Alanine Aminotransferase (ALT) 17 U/L (7-40) Alkaline Phosphatase 64 U/L (46-116) Total Protein 5.5 g/dL (5.7-8.2) Albumin 3.6 g/dL (3.2-4.8) Lactic Acid Level 0.8 mmol/L (0.4-2.0) Test 12/01/24 15:30 12/01/24 12:54 12/01/24 11:14 12/01/24 11:03 Urine Color Light-yellow (Yellow) Urine Clarity Clear (Clear) Urine pH 5.0 (5.0-9.0) Urine Specific [place] 1.025 (1.001-1.035) Urine Protein Negative (Negative) Urine Ketones 4+ (Negative) Urine Blood 1+ /uL (Negative) Urine Nitrite Negative (Negative) Urine Bilirubin Negative (Negative) Urine Urobilinogen Normal mg/dL (Negative) Urine Leukocyte Esterase Negative /uL (Negative) Urine RBC 1 /hpf (0 - 3) Urine Microscopic WBC < 1 /HPF (0-3) Urine Squamous Epithelial Cells None seen /hpf (<5) Urine Bacteria None seen /hpf (None Seen) Urine Glucose 4+ mg/dL (Normal) Phosphorus Level 4.5 mg/dL (2.4-5.1) Magnesium Level 1.8 mg/dL (1.6-2.6) Blood Gas Specimen Type Arterial Blood Gas Sample Site Right radial Blood Gas Patient Temperature 37.0 Arterial Blood Date Drawn [id number] Arterial Blood pH 7.383 (7.350-7.450) Arterial Blood Partial Pressure CO2 24.9 mmHg (35.0-48.0) Arterial Blood Partial Pressure O2 81.7 mmHg (83.0-108.0) Arterial Blood HCO3 14.5 mmol/L (21.0-28.0) Arterial Blood Oxygen Saturation 96.2 % (94.0-98.0) Arterial Blood Base Excess -8.0 mmol/L (-2.0-3.0) Arterial Blood Oxyhemoglobin 94.1 % (94.0-98.0) Arterial Blood Carboxyhemoglobin 1.4 % (0.5-1.5) Arterial Blood Methemoglobin 0.8 % (0.0-1.5) Juarez Test Yes Blood Gas Total Hemoglobin 18.80 g/dL (13.5-17.5) Blood Gas Modality Room air FiO2 % 21.0 Blood Gas Critical Value Read Back Yes Blood Gas Notified Whom Dr. barnhart Blood Gas Notified Time [id number] Blood Gas Notified By Leonardo dooley, bettina Hemoglobin A1c 9.9 % A1C (<5.7) Serum Osmolality 318 mOsm/kg (278-298) Troponin I High Sensitivity < 3 ng/L (</=54) Beta-Hydroxybutyric Acid > 4.500 mmol/L (< 0.4) Other Laboratory Tests 12/02/24 11:07 12/02/24 05:54 Brief Hx & Hospital Course: 58-year-old male with a known history of insulin-dependent diabetes mellitus initially presented to the hospital with fatigue nausea and vomiting for last two days along with a high blood sugars. Patient has stated that he was taking ibuprofen 1 g twice a day for some lymph node enlargement in the neck. Eventually patient's blood sugars were high and she started having nausea and vomiting as well. Patient was found to be in mild DKA started on insulin drip. Patient is currently out of DKA insulin drip has been off. Patient is currently being discharged under stable condition. Please follow up with the PCP in 1-2 weeks and return to ER if there is any concern. Diabetic compliance teaching has been given. Condition at Discharge: Stable Final Diagnosis/Problems List 1. Diabetic ketoacidosis resolved 2. Insulin-dependent diabetes mellitus type 2 3. Leukocytosis likely reactive 4. Lactic acidosis likely secondary to dehydration resolved Discharge Disposition: Home SNF Discharge Will this Physician continue t: No Discharge Instruct/Medications Diet: Cardiac 2g Na,low cholest Diet comment: Two thousand ADA diet Activity: No Restrictions, As Tolerated Follow Up/Referral: Follow up with the PCP in 1-2 weeks Medications: Resume home medication including long-acting insulin subQ Discharge Statement: "Patient was advised to return to the ER or call 911 if any headaches, dizziness, shortness of breath, chest pain, abdominal pain, bleeding, fevers, or worsening of medical condition. Patient was counseled about treatment plan, medications, possible side effects, patientverbalized understanding. All questions were answered to the best of my ability. This discharge took greater then 30 minutes in planning, reviewing documentation, counseling the patient, and discussing with other team members." ASSESSMENT ASSESSMENT Assessment 1. Diabetic ketoacidosis resolved 2. Insulin-dependent diabetes mellitus type 2 3. Leukocytosis likely reactive 4. Lactic acidosis likely secondary to dehydration resolved Date of Service: Dec 02, 2024 Billing Provider: DEVANG SUAREZ MD Common Visit Codes: NOT BILLABLE DEVANG SUAREZ MD Dec 02, 2024 16:23
== END 2024-12-02 18:02 | disposition home or self-care (01) | DRG 422 ==
LOC: ER 10:46 → OVERFLOW 14:34
PROVIDERS: ADMIT Internal Medicine; ATTEND Internal Medicine
DX: E86.0 Dehydration (principal); N17.0 Acute kidney failure with tubular necrosis; E10.10 Type 1 diabetes mellitus with ketoacidosis without coma; D72.829 Elevated white blood cell count, unspecified; E78.5 Hyperlipidemia, unspecified; I10 Essential (primary) hypertension; Z79.4 Long term (current) use of insulin; Z79.899 Other long term (current) drug therapy
CPT/HCPCS: 36415; 36600; 80048; 80053; 81001; 82010; 82805; 82962; 83036; 83605; 83735; 83930; 84100; 84484; 85025; 96361; 96365; 96375; 99291; G0378; J1815; J2405; J2543